=== PATIENT | male | born 1930 | race Caucasian/White ===

== ENCOUNTER 2017-02-18 16:36 | Inpatient (IN) | payer OTHER ==
[~2017-02-18] VITALS: Ht 177.8 cm; Wt 76.5 kg
[~2017-02-18 16:36] MED LIST: AZPOPS OPB; CRF1 PO; MAGNTAB4 PO; MULT-506 PO; PRLSR20 PO; STLS PO; [UNRECOGNIZED DRUG - OTHER] OPB
[2017-02-18] MEDS ORDERED: SODIUM CHLORIDE 0.9% 1000ML 1,000 ML IV SCH (16:50)
[2017-02-18 17:08] LABS: BASO % 0.5 %; BASO ABS # 0.03 K/uL (0-0.2); COMPLETE YES; EOS % 5.4 %; HEMATOCRIT 40.8 % (42-52); IG% 0.2 %; LYMPH % 35.3 %; MEAN CELL VOLUME 90.9 fL (80-100); MEAN CORPUSCULAR HGB CONC 34.1 g/dl (32-36); MEAN PLATELET VOLUME 9.5 fL (7.4-10.4); MONO % 5.1 %; NEUT % 53.5 %; PLATELET COUNT 188 K/uL (130-400); RED BLOOD COUNT 4.49 M/uL (4.7-6.1); WHITE BLOOD COUNT 6.51 K/uL (4.8-10.8)
[2017-02-18] MEDS ORDERED: SUCR1TAB PO (17:11)
[2017-02-18] MEDS ORDERED: DOCU100C PO (17:11)
[2017-02-18] MEDS ORDERED: MAGN250T22 PO (17:11)
[2017-02-18] MEDS ORDERED: SENN-61 PO (17:11)
[2017-02-18] MEDS ORDERED: CHOL400C7 PO (17:11)
[2017-02-18] MEDS ORDERED: DORZ1SOL6 OPB (17:11)
--- NOTE | 2017-02-18 17:13 | EMERGENCY ROOM VISIT NOTE ---
History Report prepared by Sanam: Quiana Alaniz Under the Supervision of: Dr. Sarthak Loredo D.O. First contact with patient: 16:45 Chief Complaint: STROKE SYMPTOMS Stated Complaint: STROKE Nursing Triage Summary: reports that pt had slurred speech and confusion lasting 15-20 minutes this afternoon 1530. [facility] at [facility] instructed pt to come to ED. Symptoms have resolved per . History of Present Illness The patient is a 86 year old male who presents to the Emergency Room with complaints of an episode of slurred speech which occurred around 1500 today. He was sitting down outside with his , resting when he began to experience difficulty speaking. His describes it as though his mouth was not working correctly. She states that he seemed confused. The patient states that he was aware that he was not making sense. The symptoms lasted for about 30 minutes. He has a similar episode 2 nights ago. He states that he is fine now. He has had some trouble keeping his balance recently. He denies any nausea, vomiting, chest pain, SOB, back pain, neck pain, melena, or hematochezia. He denies any recent falls. He has no history of irregular heart rhythms or heart valve problems. He is not on any blood thinners. Source of History: patient, spouse/significant other Onset: 1500 Position: other (global) Quality: other (slurred speech) Timing: other (episodic) Associated Symptoms: No SOB, No back pain, No chest pain, No hematochezia, No melena, No nausea, No neck pain, No vomiting Note: Pt reports confusion. Review of Systems See HPI for pertinent positives & negatives. A total of 10 systems reviewed and were otherwise negative. Past Medical & Surgical Medical Problems: (1) CKD (chronic kidney disease), stage III (2) GERD (gastroesophageal reflux disease) (3) Glaucoma (4) TIA (transient ischemic attack) Surgical Problems: (1) H/O colonoscopy (2) H/O knee surgery (3) History of cataract surgery (4) History of esophagogastroduodenoscopy (EGD) (5) History of gastric surgery Family History Noncontributory secondary to age Social History Smoking Status: Former Smoker Marital Status: Housing Status: lives with significant other Occupation Status: retired Current/Historical Medications Scheduled Cholecalciferol (Vitamin D 400 Iu), 400 INTER.UNIT PO DAILY Docusate Sodium (Stool Softener), 100 MG PO QPM Dorzolamide Hcl-Timolol Maleat (Cosopt Oph), 1 DROP OPB BID Magnesium Oxide (Magnesium), 250 MG PO DAILY Multivitamin (Multivitamin), 1 TAB PO DAILY Omeprazole (Prilosec), 20 MG PO QAM Senna (Senokot), 8.6 MG PO QPM Sucralfate (Sucralfate), 1 GM PO TID Allergies Coded Allergies: Adhesives (Unverified Allergy, Unknown, RASH, 11/09/16) Aspirin (Unverified Allergy, Unknown, BLEEDING ULCERS, 11/09/16) Codeine (Unverified Allergy, Unknown, Rash - All over body redness, ) Latex1 -Allergic Contact Dermititis (Unverified Allergy, Unknown, LOCAL RASH, 11/09/16) NSAIDs (Verified Allergy, Unknown, _, 11/09/16) Prednisone (Verified Allergy, Unknown, 11/09/16) Primidone (Verified Allergy, Unknown, SWEATING, DIZZINESS, 11/09/16) Physical Exam Vital Signs Date Time Temp Pulse Resp B/P Pulse Ox O2 Delivery O2 Flow Rate FiO2 02/18/17 18:12 64 16 153/90 99 Room Air 02/18/17 17:14 56 22 182/93 98 Room Air 02/18/17 17:13 98 Room Air 02/18/17 16:54 62 02/18/17 16:41 36.5 67 18 198/88 95 Room Air Physical Exam GENERAL: Patient is awake, alert, and in no acute distress. Patient is resting comfortably and showing no signs of anxiety EYES: The conjunctivae are clear. The pupils are round and reactive. EARS, NOSE, MOUTH AND THROAT: The nose is without any evidence of any deformity. Mucous membranes are moist tongue is midline NECK: The neck is nontender and supple. RESPIRATORY: Normal respiratory effort is noted there is no evidence of wheezing rhonchi or rales CARDIOVASCULAR: Regular rate and rhythm noted there no murmurs rubs or gallops normal S1 normal S2 GASTROINTESTINAL: The abdomen is soft. Bowel sounds are present in all quadrants. Abdomen is nontender MUSCULOSKELETAL/EXTREMITIES: There is no evidence of gross deformity full range of motion is noted in the hips and shoulders SKIN: Trace pedal edema bilaterally. No signs of cellulitis noted. NEUROLOGIC: Patient is awake alert and oriented x3. Clay Transporter strength is symmetric. No facial droop appreciated, no drift noted. Medical Decision & Procedures ER Provider Diagnostic Interpretation: X-ray results as stated below per interpretation by me and the radiologist. Radiology results as stated below per my review and radiologist interpretation: SINGLE VIEW CHEST CLINICAL HISTORY: Strokelike symptoms. FINDINGS: An AP, portable, upright chest radiograph is compared to study dated 11/09/2016. The examination is degraded by portable technique and patient rotation. The cardiomediastinal silhouette is unremarkable. There is atherosclerotic calcification of the thoracic aorta. Emphysematous change is suspected. There is chronic interstitial thickening. No airspace consolidation or large pleural effusion is identified. No pneumothorax is seen. The skeletal structures are osteopenic. Degenerative change is noted throughout the thoracic spine. IMPRESSION: No acute cardiopulmonary abnormality. Electronically signed by: Yannick Sykes M.D. 02/18/2017 6:00 PM Dictated Date/Time: 02/18/2017 5:[address] SCAN OF THE BRAIN WITHOUT IV CONTRAST CLINICAL HISTORY: Strokelike symptoms. COMPARISON STUDY: No priors. TECHNIQUE: Unenhanced axial CT scan of the brain is performed from the vertex to the skull base. CT DOSE: 614.27 mGy.cm FINDINGS: Brain parenchyma: There are age-related involutional changes noting mild subcortical and periventricular microangiopathic change. There is no hemorrhage, mass effect, or evidence of acute territorial ischemia by CT criteria. Mineralization is noted in the basal ganglia. [place]-white matter is preserved. No extra-axial fluid collection is seen. Ventricles, sulci, cisterns: Prominent secondary to involutional change. Intracranial vasculature: There is atherosclerotic calcification of the cavernous carotid and vertebral arteries. Calvarium: Unremarkable. Soft tissues: A small metallic foreign body is suggested in the frontal scalp on image #13. Sinuses and mastoids: The visualized paranasal sinuses are clear. The mastoid air cells are well pneumatized. Orbits: The bony orbits are grossly intact. There are bilateral ocular lens implants. IMPRESSION: There is no hemorrhage, mass effect, or evidence of acute territorial ischemia by CT criteria. Electronically signed by: Yannick Sykes M.D. 02/18/2017 5:15 PM Dictated Date/Time: 02/18/2017 5:13 PM Laboratory Results 02/18/17 17:00 Red Blood Count 4.49, Mean Corpuscular Volume 90.9, Mean Corpuscular Hemoglobin 31.0, Mean Corpuscular Hemoglobin Concent 34.1, Mean Platelet Volume 9.5, Neutrophils (%) (Auto) 53.5, Lymphocytes (%) (Auto) 35.3, Monocytes (%) (Auto) 5.1, Eosinophils (%) (Auto) 5.4, Basophils (%) (Auto) 0.5, Neutrophils # (Auto) 3.49, Lymphocytes # (Auto) 2.30, Monocytes # (Auto) 0.33, Eosinophils # (Auto) 0.35, Basophils # (Auto) 0.03 02/18/17 17:00 Test 02/18/17 17:00 02/18/17 17:25 White Blood Count 6.51 K/uL (4.8-10.8) Red Blood Count 4.49 M/uL (4.7-6.1) Hemoglobin 13.9 g/dL (14.0-18.0) Hematocrit 40.8 % (42-52) Mean Corpuscular Volume 90.9 fL (80-100) Mean Corpuscular Hemoglobin 31.0 pg (25-34) Mean Corpuscular Hemoglobin Concent 34.1 g/dl (32-36) Platelet Count 188 K/uL (130-400) Mean Platelet Volume 9.5 fL (7.4-10.4) Neutrophils (%) (Auto) 53.5 % Lymphocytes (%) (Auto) 35.3 % Monocytes (%) (Auto) 5.1 % Eosinophils (%) (Auto) 5.4 % Basophils (%) (Auto) 0.5 % Neutrophils # (Auto) 3.49 K/uL (1.4-6.5) Lymphocytes # (Auto) 2.30 K/uL (1.2-3.4) Monocytes # (Auto) 0.33 K/uL (0.11-0.59) Eosinophils # (Auto) 0.35 K/uL (0-0.5) Basophils # (Auto) 0.03 K/uL (0-0.2) RDW Standard Deviation 41.1 fL (36.4-46.3) RDW Coefficient of Variation 12.4 % (11.5-14.5) Immature Granulocyte % (Auto) 0.2 % Immature Granulocyte # (Auto) 0.01 K/uL (0.00-0.02) Prothrombin Time 10.6 SECONDS (9.0-12.0) Prothromb Time International Ratio 1.0 (0.9-1.1) Activated Partial Thromboplast Time 26.4 SECONDS (21.0-31.0) Partial Thromboplastin Ratio 1.0 Anion Gap 6.0 mmol/L (3-11) Est Creatinine Clear Calc Drug Dose 35.5 ml/min Estimated GFR () 48.2 Estimated GFR (Non- 41.6 BUN/Creatinine Ratio 9.9 (10-20) Calcium Level 8.6 mg/dl (8.5-10.1) Total Bilirubin 0.5 mg/dl (0.2-1) Direct Bilirubin 0.2 mg/dl (0-0.2) Aspartate Amino Transf (AST/SGOT) 19 U/L (15-37) Alanine Aminotransferase (ALT/SGPT) 25 U/L (12-78) Alkaline Phosphatase 71 U/L (45-117) Total Creatine Kinase 141 U/L (39-308) Creatine Kinase MB 2.1 ng/ml (0.5-3.6) Creatine Kinase MB Ratio 1.5 (0-3.0) Troponin I < 0.015 ng/ml (0-0.045) Total Protein 7.5 gm/dl (6.4-8.2) Albumin 4.0 gm/dl (3.4-5.0) Urine Color YELLOW Urine Appearance CLEAR (CLEAR) Urine pH 7.5 (4.5-7.5) Urine Specific [place] 1.005 (1.000-1.030) Urine Protein NEG (NEG) Urine Glucose (UA) NEG (NEG) Urine Ketones NEG (NEG) Urine Occult Blood NEG (NEG) Urine Nitrite NEG (NEG) Urine Bilirubin NEG (NEG) Urine Urobilinogen NEG (NEG) Urine Leukocyte Esterase NEG (NEG) Laboratory results per my review. Medications Administered Medications (Trade) Dose Ordered Sig/Thomas Route Start Time Stop Time Status Last Admin Dose Admin Sodium Chloride (Nss 1000ml) 1,000 ml @ 50 mls/hr Q20H IV 02/18/17 16:50 02/18/17 19:38 DC 02/18/17 17:26 50 MLS/HR ECG Indication: altered mental status Rate (beats per minute): 56 Rhythm: sinus bradycardia Findings: no ectopy, other (no ST segment abnormalities noted) Comparison ECG Date: Change: no significant change ED Course 164: The patient was evaluated in room B11B. A complete history and physical examination were performed. 165: NSS 1000 ml @ 50 mls/hr IV. 1801: I discussed the patient's case with RANDELL Gee. The patient will be evaluated for further management. 1804: I reevaluated the patient. He is resting comfortably. I discussed results and treatment plan with him. He verbalizes agreement and understanding. The patient will be evaluated for further management and care. Medical Decision Prior records/ancillary studies reviewed and summarized above. Nursing notes reviewed. Differential diagnosis: Etiologies such as metabolic, infection, hypo/hyperglycemia, electrolyte abnormalities, cardiac sources, intracerebral event, toxicologic, neurologic, as well as others were entertained. The patient is an 86-year-old male who presented to the emergency department for evaluation of possible stroke. The patient had an episode today where he had dysarthria and confusion. The episode was short lived and resolve spontaneously. His states that he had a similar episode a few days ago. The patient does not have a history of stroke or atrial fibrillation but does note that he has had elevated blood pressure today. I discussed the patient's laboratory and radiographic studies with him. I also discussed his case with the on-call Alex hospitalist. They have agreed to evaluate the patient in emergency apartment for further management and disposition. It is possible he may require further workup including echocardiogram carotid Dopplers and an MRI the brain to further evaluate the possible cause of his TIA symptoms. Consults Time Called: 1800 Consulting Physician: RANDELL Gee Returned Call: 1801 I discussed the patient's case with him. The patient will be evaluated for further management. Impression Primary Impression: TIA (transient ischemic attack) Additional Impression: Hypertension Scribe Attestation The scribe's documentation has been prepared under my direction and personally reviewed by me in its entirety. I confirm that the note above accurately reflects all work, treatment, procedures, and medical decision making performed by me. Departure Information Dispostion Being Evaluated By Hospitalist Referrals Paulino Vela M.D. (PCP) Patient Instructions My [facility] Problem Qualifiers Primary Impression: TIA (transient ischemic attack) Transient cerebral ischemia type: unspecified Qualified Codes: G45.9 - Transient cerebral ischemic attack, unspecified Additional Impression:
[2017-02-18 17:17] LABS: PROTHROMBIN TIME (PATIENT) 10.6 SECONDS (9.0-12.0)
--- NOTE | 2017-02-18 17:17 | DIAGNOSTIC IMAGING REPORT ---
CT SCAN OF THE BRAIN WITHOUT IV CONTRAST CLINICAL HISTORY: Strokelike symptoms. COMPARISON STUDY: No priors. TECHNIQUE: Unenhanced axial CT scan of the brain is performed from the vertex to the skull base. CT DOSE: 614.27 mGy.cm FINDINGS: Brain parenchyma: There are age-related involutional changes noting mild subcortical and periventricular microangiopathic change. There is no hemorrhage, mass effect, or evidence of acute territorial ischemia by CT criteria. Mineralization is noted in the basal ganglia. [place]-white matter is preserved. No extra-axial fluid collection is seen. Ventricles, sulci, cisterns: Prominent secondary to involutional change. Intracranial vasculature: There is atherosclerotic calcification of the cavernous carotid and vertebral arteries. Calvarium: Unremarkable. Soft tissues: A small metallic foreign body is suggested in the frontal scalp on image #13. Sinuses and mastoids: The visualized paranasal sinuses are clear. The mastoid air cells are well pneumatized. Orbits: The bony orbits are grossly intact. There are bilateral ocular lens implants. IMPRESSION: There is no hemorrhage, mass effect, or evidence of acute territorial ischemia by CT criteria. Electronically signed by: Yannick Sykes M.D. 02/18/2017 5:15 PM Dictated Date/Time: 02/18/2017 5:13 PM
[2017-02-18 17:26] LABS: ALT/SGPT 25 U/L (12-78); AST/SGOT 19 U/L (15-37); BLOOD UREA NITROGEN 15 mg/dl (7-18); BUN/CREATININE RATIO 9.9 (10-20); CALCIUM 8.6 mg/dl (8.5-10.1); CARBON DIOXIDE 29 mmol/L (21-32); CHLORIDE 106 mmol/L (98-107); GLUCOSE 102 mg/dl (70-99); POTASSIUM 4.4 mmol/L (3.5-5.1); SODIUM 141 mmol/L (136-145)
[2017-02-18 17:31] LABS: ALKALINE PHOSPHATASE 71 U/L (45-117); CKMB/CK RATIO 1.5 (0-3.0)
--- NOTE | 2017-02-18 18:01 | DIAGNOSTIC IMAGING REPORT ---
SINGLE VIEW CHEST CLINICAL HISTORY: Strokelike symptoms. FINDINGS: An AP, portable, upright chest radiograph is compared to study dated 11/09/2016. The examination is degraded by portable technique and patient rotation. The cardiomediastinal silhouette is unremarkable. There is atherosclerotic calcification of the thoracic aorta. Emphysematous change is suspected. There is chronic interstitial thickening. No airspace consolidation or large pleural effusion is identified. No pneumothorax is seen. The skeletal structures are osteopenic. Degenerative change is noted throughout the thoracic spine. IMPRESSION: No acute cardiopulmonary abnormality. Electronically signed by: Yannick Sykes M.D. 02/18/2017 6:00 PM Dictated Date/Time: 02/18/2017 5:58 PM
[2017-02-18 18:04] LABS: URINE APPEARANCE CLEAR (CLEAR); URINE BILIRUBIN NEG (NEG); URINE COLOR YELLOW; URINE NITRITE NEG (NEG); URINE PH 7.5 (4.5-7.5); URINE SPECIFIC GRAVITY 1.005 (1.000-1.030); UROBILINOGEN NEG (NEG)
[2017-02-18 18:14] LABS: MANUAL MICROSCOPIC REQUIRED? NO; REVIEW REQ? NO
[2017-02-18] MEDS ORDERED: PHARMACIST DISCHARGE MED REC CONSULT PRN (18:45)
[2017-02-18] MEDS ORDERED: ACETAMINOPHEN 325 MG TAB PO PRN (18:45)
[2017-02-18] MEDS ORDERED: ONDANSETRON INJ 2 MG/ML 2 ML VIAL IV PRN (18:45)
--- NOTE | 2017-02-18 19:52 | History and Physical ---
History & Physical Date & Time of Service: Feb 18, 2017 at 19:40 Chief Complaint: TIA Primary Care Physician: Paulino Vela M.D. History of Present Illness Source: patient, family, clinic records, hospital records Patient seen and examined. 86 year old male with PMHx of CKD stage 3, presents to the ED complaining of slurred speech prior to arrival. Patient reports that he has had 2 episodes of slurred speech in the last two days. He reports the episodes last about 15 minutes and then resolve. reports that during the episode the patient seems confused. She did not notice that he had any facial droop. He denies unilateral weakness. They called [facility] who told the patient to go to the ED and the patient arrived several hours later, and reports he is back at baseline. He denies falls, head trauma, lightheadedness, syncope, URI symptoms, chest pain, SOB, nausea, vomiting, diarrhea, dysuria, calf pain and edema. He denies ever having these episodes previously. He denies history of heart problems, HTN. In the ED patient was initially hypertensive with SBP 198. This improved ot [address] head was negative, CBC, PRP, UA were essentially unremarkable. Patient has a history of severe GI bleed while taken Aspirin so aspirin was not given. He will be admitted for further workup and treatment. Past Medical/Surgical History Medical Problems: (1) CKD (chronic kidney disease), stage III Status: Chronic (2) GERD (gastroesophageal reflux disease) Status: Chronic (3) Glaucoma Status: Chronic Surgical Problems: (1) H/O colonoscopy Status: Chronic (2) H/O knee surgery Status: Chronic (3) History of cataract surgery Status: Chronic (4) History of esophagogastroduodenoscopy (EGD) Status: Chronic (5) History of gastric surgery Status: Chronic Family History Diabetes mellitus FH: cancer FH: heart disease Kidney disease Social History Smoking Status: Former Smoker Alcohol Use: none Marital Status: Housing status: lives with family Occupational Status: retired Immunizations History of Influenza Vaccine: N/A History of Tetanus Vaccine?: No History of Pneumococcal: Unknown History of Hepatitis B Vaccine: No Multi-Drug Resistant Organisms History of MDRO: No Allergies Coded Allergies: Adhesives (Unverified Allergy, Unknown, RASH, 11/09/16) Aspirin (Unverified Allergy, Unknown, BLEEDING ULCERS, 11/09/16) Codeine (Unverified Allergy, Unknown, Rash - All over body redness, ) Latex1 -Allergic Contact Dermititis (Unverified Allergy, Unknown, LOCAL RASH, 11/09/16) NSAIDs (Verified Allergy, Unknown, _, 11/09/16) Prednisone (Verified Allergy, Unknown, 11/09/16) Primidone (Verified Allergy, Unknown, SWEATING, DIZZINESS, 11/09/16) Home Medications Scheduled Cholecalciferol (Vitamin D 400 Iu), 400 INTER.UNIT PO DAILY Docusate Sodium (Stool Softener), 100 MG PO QPM Dorzolamide Hcl-Timolol Maleat (Cosopt Oph), 1 DROP OPB BID Magnesium Oxide (Magnesium), 250 MG PO DAILY Multivitamin (Multivitamin), 1 TAB PO DAILY Omeprazole (Prilosec), 20 MG PO QAM Senna (Senokot), 8.6 MG PO QPM Sucralfate (Sucralfate), 1 GM PO TID Review of Systems See above for pertinent positives & negatives. A total of 10 systems reviewed and were otherwise negative. Physical Exam Vital Signs Date Time Temp Pulse Resp B/P Pulse Ox O2 Delivery O2 Flow Rate FiO2 02/18/17 19:16 74 22 184/94 97 Room Air 02/18/17 18:12 64 16 153/90 99 Room Air 02/18/17 17:14 56 22 182/93 98 Room Air 02/18/17 17:13 98 Room Air 02/18/17 16:54 62 02/18/17 16:41 36.5 67 18 198/88 95 Room Air General Appearance: + pertinent finding (WD/WN 86 year old male lying in bed in NAD with at bedside) Head: normocephalic, atraumatic Eyes: PERRL, EOMI, sclerae normal ENT: hearing grossly normal, pharynx normal Neck: supple, no JVD Respiratory/Chest: chest non-tender, lungs clear, normal breath sounds, no respiratory distress, no accessory muscle use Cardiovascular: regular rate, rhythm, no edema, no gallop, no JVD, no murmur, normal peripheral pulses Abdomen/GI: normal bowel sounds, non tender, soft Back: normal inspection, no muscle spasm Extremities/Musculoskelatal: no calf tenderness, normal capillary refill, no pedal edema Neurologic/Psych: tank tender II-XII nml as tested, alert, oriented x 3, + pertinent finding (no focal deficits ) Skin: normal color, warm/dry, no rash Lymphatic: no adenopathy Diagnostics Laboratory Results Results Past 24 Hours Test 02/18/17 17:00 02/18/17 17:25 Range/Units White Blood Count 6.51 4.8-10.8 K/uL Red Blood Count 4.49 4.7-6.1 M/uL Hemoglobin 13.9 14.0-18.0 g/dL Hematocrit 40.8 42-52 % Mean Corpuscular Volume 90.9 80-100 fL Mean Corpuscular Hemoglobin 31.0 25-34 pg Mean Corpuscular Hemoglobin Concent 34.1 32-36 g/dl Platelet Count 188 130-400 K/uL Mean Platelet Volume 9.5 7.4-10.4 fL Neutrophils (%) (Auto) 53.5 % Lymphocytes (%) (Auto) 35.3 % Monocytes (%) (Auto) 5.1 % Eosinophils (%) (Auto) 5.4 % Basophils (%) (Auto) 0.5 % Neutrophils # (Auto) 3.49 1.4-6.5 K/uL Lymphocytes # (Auto) 2.30 1.2-3.4 K/uL Monocytes # (Auto) 0.33 0.11-0.59 K/uL Eosinophils # (Auto) 0.35 0-0.5 K/uL Basophils # (Auto) 0.03 0-0.2 K/uL RDW Standard Deviation 41.1 36.4-46.3 fL RDW Coefficient of Variation 12.4 11.5-14.5 % Immature Granulocyte % (Auto) 0.2 % Immature Granulocyte # (Auto) 0.01 0.00-0.02 K/uL Prothrombin Time 10.6 9.0-12.0 SECONDS Prothromb Time International Ratio 1.0 0.9-1.1 Activated Partial Thromboplast Time 26.4 21.0-31.0 SECONDS Partial Thromboplastin Ratio 1.0 Sodium Level 141 136-145 mmol/L Potassium Level 4.4 3.5-5.1 mmol/L Chloride Level 106 98-107 mmol/L Carbon Dioxide Level 29 21-32 mmol/L Anion Gap 6.0 3-11 mmol/L Blood Urea Nitrogen 15 7-18 mg/dl Creatinine 1.50 0.60-1.40 mg/dl Est Creatinine Clear Calc Drug Dose 35.5 ml/min Estimated GFR () 48.2 Estimated GFR (Non- 41.6 BUN/Creatinine Ratio 9.9 10-20 Random Glucose 102 70-99 mg/dl Calcium Level 8.6 8.5-10.1 mg/dl Total Bilirubin 0.5 0.2-1 mg/dl Direct Bilirubin 0.2 0-0.2 mg/dl Aspartate Amino Transf (AST/SGOT) 19 15-37 U/L Alanine Aminotransferase (ALT/SGPT) 25 12-78 U/L Alkaline Phosphatase 71 45-117 U/L Total Creatine Kinase 141 39-308 U/L Creatine Kinase MB 2.1 0.5-3.6 ng/ml Creatine Kinase MB Ratio 1.5 0-3.0 Troponin I < 0.015 0-0.045 ng/ml Total Protein 7.5 6.4-8.2 gm/dl Albumin 4.0 3.4-5.0 gm/dl Urine Color YELLOW Urine Appearance CLEAR CLEAR Urine pH 7.5 4.5-7.5 Urine Specific [place] 1.005 1.000-1.030 Urine Protein NEG NEG Urine Glucose (UA) NEG NEG Urine Ketones NEG NEG Urine Occult Blood NEG NEG Urine Nitrite NEG NEG Urine Bilirubin NEG NEG Urine Urobilinogen NEG NEG Urine Leukocyte Esterase NEG NEG Diagnostic Radiology CT HEAD Per radiologist read: IMPRESSION: There is no hemorrhage, mass effect, or evidence of acute territorial ischemia by CT criteria. CXR Per radiologist read: IMPRESSION: No acute cardiopulmonary abnormality. EKG Sinus Bradycardia 56 BPM Impression Assessment and Plan 86 year old male presents to the ED with multiple episodes of slurred speech lasting for approximately 15 minutes at a time TIA R/O CVA -observation in tele -CT head negative in ED -MRA/MRI to r/o CVA -Fasting lipid profile in AM -Echo pending to r/o embolic source -Carotid Doppler US pending -Monitor in tele to r/o arrhythmia -Statin started for secondary prevention -Aspirin not given as patient has history of severe GI bleed while on aspirin. Case discussed with admitting physician. Will defer antiplatelet therapy to neurology -Neurology consult pending for further input -Neuro checks q4h -PT/OT speech evals -CBC, PRP, Mg daily -VSS stable monitor HYPERTENSION - UNCONTROLLED -SBP was 198 on arrival, improved to 153 without intervention -allow permissive HTN in setting of possible stroke -may need to start antihypertensives -monitor in tele CKD STAGE 3 -crea stable -avoid nephrotoxic agents as able -follow PRP GERD/History of PUD -continue PPI, carafate GLAUCOMA -continue eye drops DVT PROPHYLAXIS: SCDs RE: h/o GI bleed CODE STATUS: FULL CODE per my discussion with the patient DISPO:In my clinical judgment this beneficiary meets acute admission criteria, established by [facility], that includes being hospitalized through two midnights. Patient seen in collaboration with Dr. Ding Attending Addendum Pt was seen and examined. Agreed with Giacomo OTERO's physical exam, assessment and plan. 86 year old male with PMHx of CKD stage 3, HTN presents to the ED with c/ o slurred speech. Pt said that he has had 2 episodes of slurred speech that occurred 2 days ago. He said that he did not have any other symptoms. Pt said that his speech is back to normal. Denies any chest pain, palpitation, dizziness , weakness and SOB. General- No acute distress Head- atraumatic Eyes- PERRL, EOMI ENT- oropharynx clear Neck- supple, no JVD Lungs- clear to auscultation, no wheezing Heart- regular rhythm; no murmur, no gallop Abdomen- normal bowel sounds, soft Extremities-no calf tenderness Neuro- alert, oriented, PERRL, EOMI; no dysarthria; motor 5/5 bilaterally Skin- warm & dry A/P Slurred speech Possible related to TIA Need to R/o CVA CT head negative for any intracranial abnormality Symptom resolved will do neuro check check MRI of the head and MRA of head and neck, and echo No ASA given since pt had severe GI bleed while on asa few years ago will do statins consult neurology continue monitor pt closely in telemetry Lab, EKG, imaging reviewed Please refer to Laura OTERO documentation for other problems Tylor Ding MD VTE Prophylaxis VTE Risk Assessment Done? Y/N: Yes Risk Level: Moderate
[2017-02-18 19:58] VITALS: BP 169/88; PULSE 70; TEMP 36.6; O2SAT 98; Ht 177.8 cm; Wt 76.5 kg
[2017-02-18 20:00] VITALS: O2SAT 98
[2017-02-18] MEDS: DORZOLAMIDE/TIMOLOL 22.3/6.8MG/ML 10 ML BTL OPB SCH (21:00)
[2017-02-18] MEDS: SUCRALFATE 1 GM TAB PO SCH (21:01)
[2017-02-18] MEDS: DOCUSATE SODIUM 100 MG CAP PO SCH (21:01)
[2017-02-18] MEDS: SENNA 8.6 MG TAB PO SCH (21:02)
[2017-02-18 23:35] VITALS: BP 153/80; PULSE 64; TEMP 36.8; O2SAT 96
[2017-02-19] VITALS (9 sets, daily range): BP systolic 122–175; BP diastolic 72–93; PULSE 53–73; TEMP 36.4–37.1; O2SAT 94–99
[2017-02-19 06:55] LABS: BASO % 0.5 %; BASO ABS # 0.03 K/uL (0-0.2); COMPLETE YES; EOS % 5.7 %; IG% 0.2 %; LYMPH % 28.5 %; LYMPH ABS # 1.84 K/uL (1.2-3.4); MEAN CELL VOLUME 91.1 fL (80-100); MEAN CORPUSCULAR HEMOGLOBIN 31.1 pg (25-34); MEAN CORPUSCULAR HGB CONC 34.1 g/dl (32-36); MEAN PLATELET VOLUME 9.7 fL (7.4-10.4); MONO % 7.1 %; PLATELET COUNT 178 K/uL (130-400); WHITE BLOOD COUNT 6.45 K/uL (4.8-10.8)
[2017-02-19 07:29] LABS: BUN/CREATININE RATIO 10.1 (10-20); CALCIUM 8.9 mg/dl (8.5-10.1); CREATININE 1.5 mg/dl (0.60-1.40); POTASSIUM 4.2 mmol/L (3.5-5.1)
[2017-02-19 07:33] LABS: CHOLESTEROL/HDL RATIO 3.5
[2017-02-19] MEDS: DORZOLAMIDE/TIMOLOL 22.3/6.8MG/ML 10 ML BTL OPB SCH ×2 (07:55→17:44)
[2017-02-19] MEDS: MAGNESIUM OXIDE 400 MG TAB PO SCH (07:56)
[2017-02-19] MEDS: ATORVASTATIN 40 MG TAB PO SCH (07:56)
[2017-02-19] MEDS: PANTOprazole SOD 40 MG TAB PO SCH (07:56)
[2017-02-19] MEDS: MULTIVITAMIN TAB PO SCH (07:56)
[2017-02-19] MEDS: CHOLECALCIFEROL 400 INTER.UNIT TAB PO SCH (07:56)
[2017-02-19] MEDS: SUCRALFATE 1 GM TAB PO SCH ×3 (07:57→20:19)
--- NOTE | 2017-02-19 09:20 | DIAGNOSTIC IMAGING REPORT ---
CAROTID ARTERY ULTRASOUND CLINICAL HISTORY: Stroke COMPARISON STUDY: None. TECHNIQUE: Real-time, grayscale, and color Doppler sonography of the carotid and vertebral arteries was performed. Images were viewed in the transverse and longitudinal planes. FINDINGS: There is mild to moderate atherosclerotic plaque. Velocity measurements are listed below. COMMON CAROTID PEAK SYSTOLIC VELOCITY (CM/S): RIGHT 76 LEFT 109 ICA PEAK SYSTOLIC VELOCITY (CM/S): RIGHT 51 LEFT 75 The systolic ratios between the internal to common carotid arteries are normal. Antegrade flow is seen in the vertebral arteries. The external carotid arteries are patent. Blood pressure in the right arm measured 140/81. Blood pressure in the left arm measured 158/80. IMPRESSION: No evidence of a hemodynamically significant stenosis. Electronically signed by: Richie Fernández M.D. 02/19/2017 9:18 AM Dictated Date/Time: 02/19/2017 9:17 AM
--- NOTE | 2017-02-19 12:22 | NEUROLOGY CONSULTATION ---
DATE OF CONSULTATION: 02/19/2017 DATE OF CONSULTATION: 02/19/2017. REASON FOR CONSULTATION: Transient ischemic attack. HISTORY OF PRESENT ILLNESS: The patient is an 86-year-old left-handed male with chronic kidney disease presents to the ER with 2 episodes of slurred speech versus aphasia prior to arrival. The patient had had an episode the day before lasting about 15 minutes. reported that he seemed confused and the patient reports perhaps a dysarthria. The patient said that he was aware that he was not making sense. There were no other accompanying neurologic symptoms. There was no change in vision, facial droop, unilateral weakness, numbness, headaches. There was no chest pain, palpitations or shortness of breath. He apparently has had some trouble with his balance recently, although he did not confirm that to me. He denies any numbness, tingling in his feet. He does not take any antiplatelet agents as he has a history of a remote GI bleed. He had dental work several weeks ago, takes prophylactic antibiotics and did so. Has not had any fevers, chills, sweats, head or neck injury. He has no prior history of transient ischemic attack or stroke. The patient is a fair historian and unable to give all the details of his medical history. He does know that he has glaucoma, did not know that he had reflux or chronic kidney disease. Surgically, he has had gastric surgery, which the patient says was remote and I am assuming may have been some type of vagotomy. He has had an esophagogastroduodenoscopy, cataract surgery which could not recall, right knee replacement, colonoscopy. FAMILY HISTORY: No family history of stroke. He is a former smoker, does not drink alcohol. 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 MEDICATIONS: On admission were vitamin D, stool softener, Cosopt, magnesium, multiple vitamin, Prilosec, Senokot and sucralfate. ALLERGIES: LISTED ADHESIVES, ASPIRIN "BLEEDING ULCER", CODEINE, LATEX, NONSTEROIDALS, PREDNISONE, PRIMIDONE. REVIEW OF SYSTEMS: As above. CT of the head is unremarkable for age. There is a small metallic foreign body in the frontal scalp. Carotid ultrasound, no evidence of a hemodynamically significant stenosis. Electrocardiogram on admission, sinus bradycardia, cannot rule inferior infarct. LABORATORY DATA: White count 6.5, H\\T\\H 13.9/40, platelet count 188. PT 10.6, PTT 26.4. Chemistry profile notable for a creatinine of 1.5, a creatinine clearance of 35.5, random glucose of 102. His LDL is 102. Urinalysis was negative. PHYSICAL EXAMINATION: VITAL SIGNS: 37, 53, 16, 166/77. GENERAL: The patient is awake and alert, oriented x3, has 3/3 memory at 3 minutes, but does not recall who the vice president financial is and had an incomplete recollection of his own medical history. There is no difficulty with naming, repetitions, or 3-step commands. There was no right/left confusion. No carotid bruits. HEART: Regular rate and rhythm. EXTREMITIES: Radial pulses and posterior tibial pulses were intact. There was no calf swelling or tenderness. ABDOMEN: Soft and nontender. NEUROLOGIC: Pupils appear to be postsurgical. The visualized optic nerves unremarkable. Normal goodman, motility, facial sensation and facial symmetry. Speech and language were normal. Tongue was midline. Trapezius was full. Motor there is normal bulk and tone. No resting tremors noted. There is full strength, no drift. Normal rapid alternating movements. [id number] minimally tremulous. Heel to faulkner mildly dystaxic but probably on a sensory basis. Reflexes symmetric. Knee jerks depressed. Ankle jerks absent. Toes downgoing. Vibration only appreciated at the knees and there is above the ankle level to temperature on the left. His gait was fairly unremarkable for his age. IMPRESSION: 1. Transient ischemic attack, unclear localization. Query left or right hemisphere in this patient given the report of language dysfunction in this patient who is left handed. I do not think the patient can have an MRI of the brain due to the retained metal fragment in his forehead. I would recommend an echocardiography. I would recommend GI consultation to determine the safety of whether or not antiplatelet therapy can be used. In this patient it is acceptable to GI, lean in the direction of Plavix which potentially might be less irritating to the gastrointestinal tract. 2. Recommend telemetric monitoring. 3. 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 We will do some labs for treatable causes. Given the prominent posterior column findings it could be related to B12 deficiency. Will follow with you. ANANDA
--- NOTE | 2017-02-19 12:23 | Progress Note ---
Medicine Progress Note Date & Time of Visit: Feb 19, 2017 at 12:13. 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 Specifically he had some slurred speech and word finding difficulty that lasted appro 15 minutes at a time on two separate occasions. He denies any other deficits including gait issues, visual changes, difficulty swallowing and no headaches, numbness or other concerning symptom. No symptoms occurred overnight and no arrythmias noted on telemetry. Currently feeling well. Objective Last 8 Hrs Date Time Temp Pulse Resp B/P Pulse Ox O2 Delivery O2 Flow Rate FiO2 02/19/17 08:00 Room Air 02/19/17 07:15 37.0 53 16 166/77 99 Room Air 02/19/17 04:15 36.4 53 16 150/93 97 Room Air Physical Exam: GEN: WNWD, in no acute distress, alert and appropriate HEENT: NC/AT, PERRL, normal sclerae, EOMI CARDIO: reg rate, S1/2 heard without m/g/r, no carotid bruits heard LUNGS: CTA bilaterally, no crackles, rales or wheezes, good diaphragmatic excursion ABD: soft, non-tender, non-distended, no rebound or guarding EXTREMITY: no LE swelling or edema, extremities are warm and well-perfused NEURO: CN 2-12 intact, sensation intact throughout, coordination intact (CLAUDIA/ finger to nose/heel to faulkner), Romberg negative, attempted BR, knee and S1 reflexes and could not elicit them (pt tensing up) MUSC: 5/5 strength throughout, no focal deficits SKIN: warm and dry Laboratory Results: 02/19/17 06:31 Red Blood Count 4.50, Mean Corpuscular Volume 91.1, Mean Corpuscular Hemoglobin 31.1, Mean Corpuscular Hemoglobin Concent 34.1, Mean Platelet Volume 9.7, Neutrophils (%) (Auto) 58.0, Lymphocytes (%) (Auto) 28.5, Monocytes (%) (Auto) 7.1, Eosinophils (%) (Auto) 5.7, Basophils (%) (Auto) 0.5, Neutrophils # (Auto) 3.74, Lymphocytes # (Auto) 1.84, Monocytes # (Auto) 0.46, Eosinophils # (Auto) 0.37, Basophils # (Auto) 0.03 02/19/17 06:31 Test 02/18/17 17:00 02/18/17 17:25 02/19/17 06:31 02/19/17 11:45 Prothrombin Time 10.6 SECONDS (9.0-12.0) Prothromb Time International Ratio 1.0 (0.9-1.1) Activated Partial Thromboplast Time 26.4 SECONDS (21.0-31.0) Partial Thromboplastin Ratio 1.0 Total Bilirubin 0.5 mg/dl (0.2-1) Direct Bilirubin 0.2 mg/dl (0-0.2) Aspartate Amino Transf (AST/SGOT) 19 U/L (15-37) Alanine Aminotransferase (ALT/SGPT) 25 U/L (12-78) Alkaline Phosphatase 71 U/L (45-117) Total Creatine Kinase 141 U/L (39-308) Creatine Kinase MB 2.1 ng/ml (0.5-3.6) Creatine Kinase MB Ratio 1.5 (0-3.0) Troponin I < 0.015 ng/ml (0-0.045) Total Protein 7.5 gm/dl (6.4-8.2) Albumin 4.0 gm/dl (3.4-5.0) Urine Color YELLOW Urine Appearance CLEAR (CLEAR) Urine pH 7.5 (4.5-7.5) Urine Specific Gays 1.005 (1.000-1.030) Urine Protein NEG (NEG) Urine Glucose (UA) NEG (NEG) Urine Ketones NEG (NEG) Urine Occult Blood NEG (NEG) Urine Nitrite NEG (NEG) Urine Bilirubin NEG (NEG) Urine Urobilinogen NEG (NEG) Urine Leukocyte Esterase NEG (NEG) White Blood Count 6.45 K/uL (4.8-10.8) Red Blood Count 4.50 M/uL (4.7-6.1) Hemoglobin 14.0 g/dL (14.0-18.0) Hematocrit 41.0 % (42-52) Mean Corpuscular Volume 91.1 fL (80-100) Mean Corpuscular Hemoglobin 31.1 pg (25-34) Mean Corpuscular Hemoglobin Concent 34.1 g/dl (32-36) Platelet Count 178 K/uL (130-400) Mean Platelet Volume 9.7 fL (7.4-10.4) Neutrophils (%) (Auto) 58.0 % Lymphocytes (%) (Auto) 28.5 % Monocytes (%) (Auto) 7.1 % Eosinophils (%) (Auto) 5.7 % Basophils (%) (Auto) 0.5 % Neutrophils # (Auto) 3.74 K/uL (1.4-6.5) Lymphocytes # (Auto) 1.84 K/uL (1.2-3.4) Monocytes # (Auto) 0.46 K/uL (0.11-0.59) Eosinophils # (Auto) 0.37 K/uL (0-0.5) Basophils # (Auto) 0.03 K/uL (0-0.2) RDW Standard Deviation 41.4 fL (36.4-46.3) RDW Coefficient of Variation 12.4 % (11.5-14.5) Immature Granulocyte % (Auto) 0.2 % Immature Granulocyte # (Auto) 0.01 K/uL (0.00-0.02) Anion Gap 7.0 mmol/L (3-11) Est Creatinine Clear Calc Drug Dose 36.5 ml/min Estimated GFR () 48.2 Estimated GFR (Non- 41.6 BUN/Creatinine Ratio 10.1 (10-20) Calcium Level 8.9 mg/dl (8.5-10.1) Magnesium Level 2.0 mg/dl (1.8-2.4) Triglycerides Level 81 mg/dl (0-150) Cholesterol Level 165 mg/dl (0-200) HDL Cholesterol 47 mg/dl LDL Cholesterol, Calculated 102 mg/dl VLDL Cholesterol, Calculated 16 mg/dl Cholesterol/HDL Ratio 3.5 Last 24 Hours Test 02/18/17 17:00 02/18/17 17:25 02/19/17 06:31 02/19/17 11:45 White Blood Count 6.51 K/uL 6.45 K/uL Red Blood Count 4.49 M/uL 4.50 M/uL Hemoglobin 13.9 g/dL 14.0 g/dL Hematocrit 40.8 % 41.0 % Mean Corpuscular Volume 90.9 fL 91.1 fL Mean Corpuscular Hemoglobin 31.0 pg 31.1 pg Mean Corpuscular Hemoglobin Concent 34.1 g/dl 34.1 g/dl Platelet Count 188 K/uL 178 K/uL Mean Platelet Volume 9.5 fL 9.7 fL Neutrophils (%) (Auto) 53.5 % 58.0 % Lymphocytes (%) (Auto) 35.3 % 28.5 % Monocytes (%) (Auto) 5.1 % 7.1 % Eosinophils (%) (Auto) 5.4 % 5.7 % Basophils (%) (Auto) 0.5 % 0.5 % Neutrophils # (Auto) 3.49 K/uL 3.74 K/uL Lymphocytes # (Auto) 2.30 K/uL 1.84 K/uL Monocytes # (Auto) 0.33 K/uL 0.46 K/uL Eosinophils # (Auto) 0.35 K/uL 0.37 K/uL Basophils # (Auto) 0.03 K/uL 0.03 K/uL RDW Standard Deviation 41.1 fL 41.4 fL RDW Coefficient of Variation 12.4 % 12.4 % Immature Granulocyte % (Auto) 0.2 % 0.2 % Immature Granulocyte # (Auto) 0.01 K/uL 0.01 K/uL Prothrombin Time 10.6 SECONDS Prothromb Time International Ratio 1.0 Activated Partial Thromboplast Time 26.4 SECONDS Partial Thromboplastin Ratio 1.0 Sodium Level 141 mmol/L 143 mmol/L Potassium Level 4.4 mmol/L 4.2 mmol/L Chloride Level 106 mmol/L 105 mmol/L Carbon Dioxide Level 29 mmol/L 31 mmol/L Anion Gap 6.0 mmol/L 7.0 mmol/L Blood Urea Nitrogen 15 mg/dl 15 mg/dl Creatinine 1.50 mg/dl 1.50 mg/dl Est Creatinine Clear Calc Drug Dose 35.5 ml/min 36.5 ml/min Estimated GFR () 48.2 48.2 Estimated GFR (Non- 41.6 41.6 BUN/Creatinine Ratio 9.9 10.1 Random Glucose 102 mg/dl 94 mg/dl Calcium Level 8.6 mg/dl 8.9 mg/dl Total Bilirubin 0.5 mg/dl Direct Bilirubin 0.2 mg/dl Aspartate Amino Transf (AST/SGOT) 19 U/L Alanine Aminotransferase (ALT/SGPT) 25 U/L Alkaline Phosphatase 71 U/L Total Creatine Kinase 141 U/L Creatine Kinase MB 2.1 ng/ml Creatine Kinase MB Ratio 1.5 Troponin I < 0.015 ng/ml Total Protein 7.5 gm/dl Albumin 4.0 gm/dl Urine Color YELLOW Urine Appearance CLEAR Urine pH 7.5 Urine Specific Gays 1.005 Urine Protein NEG Urine Glucose (UA) NEG Urine Ketones NEG Urine Occult Blood NEG Urine Nitrite NEG Urine Bilirubin NEG Urine Urobilinogen NEG Urine Leukocyte Esterase NEG Magnesium Level 2.0 mg/dl Triglycerides Level 81 mg/dl Cholesterol Level 165 mg/dl HDL Cholesterol 47 mg/dl LDL Cholesterol, Calculated 102 mg/dl VLDL Cholesterol, Calculated 16 mg/dl Cholesterol/HDL Ratio 3.5 Diagnostic Imaging: CAROTID ARTERY ULTRASOUND (02/19): IMPRESSION: No evidence of a hemodynamically significant stenosis. 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 TIA-no events on tele overnight and no reoccurrence of TIA symptoms. CT head negative; MRI cancelled 2/2 metallic FB in scalp. Lipid panel looks fine. TTE pending. Carotids are normal. Appreciate Neuro recs regarding antiplatelet therapy in this gentleman with a significant h/o gastric ulcers after prednisone use. PT/OT evals pending. 2. HTN-in 190s systolic on arrival but went to 150s without intervention. Permissive HTN in setting of TIA/poss stroke. Not on any antihypertensives, which will likely need to be added once out of the acute period. Cont to monitor. 3. CKD Stage III-at baseline creatinine. Avoid nephrotoxic agents as able and renally dose medications as appropriate 4. h/o PUD-avoid prednisone, cont PPI and carafate 5. Glaucoma-cont home eye drops DVT PROPHYLAXIS: SCDs RE: h/o GI bleed Full Code Dispo: pending Neuro and PT/OT inputs. Erin Robb DO [facility] Hospitalist Consultants: Neuro Current Inpatient Medications: Current Inpatient Medications Medications (Trade) Dose Ordered Sig/Thomas Route Start Time Stop Time Status Last Admin Dose Admin Acetaminophen (Tylenol Tab) 650 mg Q4H PRN PO 02/18/17 18:45 03/20/17 18:44 Ondansetron HCl (Zofran Inj) 4 mg Q6H PRN IV 02/18/17 18:45 03/20/17 18:44 Atorvastatin Calcium (Lipitor Tab) 40 mg QAM PO 02/19/17 09:00 03/21/17 08:59 02/19/17 07:56 40 MG Miscellaneous Information (Pharmacist Discharge Med Rec Consult) 1 ea UD PRN N/A 02/18/17 18:45 03/20/17 18:44 Cholecalciferol (Vitamin D Tab) 400 inter.unit DAILY PO 02/19/17 09:00 03/21/17 08:59 02/19/17 07:56 400 INTER.UNIT Docusate Sodium (coLACE CAP) 100 mg QPM PO 02/18/17 21:00 03/20/17 20:59 02/18/17 21:01 100 MG Dorzolamide/ Timolol (Cosopt Op Soln) 1 drops BID OPB 02/18/17 21:00 03/20/17 20:59 02/19/17 07:55 1 DROPS Multivitamins (Multivitamin Tab) 1 tab DAILY PO 02/19/17 09:00 03/21/17 08:59 02/19/17 07:56 1 TAB Senna (Senokot Tab) 8.6 mg QPM PO 02/18/17 21:00 03/20/17 20:59 02/18/17 21:02 8.6 MG Sucralfate (Carafate Tab) 1 gm TID PO 02/18/17 21:00 03/20/17 20:59 02/19/17 07:57 1 GM Magnesium Oxide (Mag-Ox Tab) 200 mg DAILY PO 02/19/17 09:00 03/21/17 08:59 02/19/17 07:56 200 MG Pantoprazole Sodium (Protonix Tab) 40 mg QAM PO 02/19/17 09:00 03/21/17 08:59 02/19/17 07:56 40 MG
--- NOTE | 2017-02-19 12:32 | CARDIOLOGY CONSULTATION ---
DATE OF CONSULTATION: 02/19/2017 HISTORY OF PRESENT ILLNESS: Rashi Quintero is an 86-year-old male, seen in cardiology consultation per the request of Dr. Robb for the evaluation of abnormal EKG with recent transient neurologic symptoms. The patient's primary care provider is Dr. Paulino Vela at [facility]. The patient has not followed the cardiology on a chronic basis in the past. He apparently was in his normal state of health until several days ago when he had a brief episode of transient slurred speech and his words do not make any sense. This improved on its own and then yesterday, he had an episode that lasted 15 minutes. The patient's spouse states that he was saying things that did not make sense and in addition, his speech was slurred. The patient was subsequently confused. He could recognize that he was confused and this frustrated to him. He subsequently presented to the Emergency Department and his symptoms had resolved. There is no known underlying heart disease or arrhythmia in the past. He is not on antihypertensive medications. Review of his outpatient record reveals well controlled blood pressures with systolic blood pressure ranging from 100-110 mmHg on several recent past outpatient visits. During my interview with the patient in the PCU, he is feeling well and he was accompanied by his family. His blood pressure had been elevated on arrival to the Emergency Room with an initial systolic blood pressure of 198 mmHg and has trended down. PAST MEDICAL HISTORY: 1. History of profound gastrointestinal bleeding in 1994 that was attributed to prednisone use, which required eventual intraabdominal surgery at [facility] with a prolonged hospital course and prolonged ventilator course. He has therefore not been on steroidal anti-inflammatories, nonsteroidal anti-inflammatories, or aspirin in the interim time. 2. Gastroesophageal reflux disease. 3. Glaucoma. PAST SURGICAL HISTORY: 1. History of colonoscopy. 2. History of knee surgery. 3. History of cataract surgery. 4. History of gastric surgery as outlined above. FAMILY HISTORY: Notable for cancer and heart disease, details unknown. SOCIAL HISTORY: The patient is a former smoker. He denies alcohol use. He is and lives with his spouse. 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 ALLERGIES: Reviewed. HOME MEDICATIONS: Reviewed. REVIEW OF SYSTEMS: A 10-point review of systems was performed and is negative with the exception of that noted above. PHYSICAL EXAMINATION: VITAL SIGNS: Temperature 37.0, heart rate 53, blood pressure on most recent vital signs 166/77, and pulse oximetry 97% on room air. GENERAL APPEARANCE: Awake and oriented x3, in no acute distress. HEENT: Extraocular muscles were intact. Pupils equal and reactive to light. NECK: No bruits. No cervical lymphadenopathy. CARDIOVASCULAR: Regular rate and rhythm. No murmurs, rubs or gallops. ABDOMEN: Positive bowel sounds. Soft, nontender, and nondistended. EXTREMITIES: No clubbing, cyanosis or edema. NEUROLOGIC: No focal deficits at the present time. DIAGNOSTIC DATA: EKG performed on admission on February 18 and again on February 19 revealed sinus bradycardia and the most recent tracing at 52 beats per minute with nonspecific intraventricular conduction delay, the QRS duration is 130 milliseconds and age undetermined septal infarction cannot be excluded. The 2 EKGs this admission are very similar. These tracings were compared to a prior performed at [facility] dated 08/11/2011, at which time sinus rhythm with nonspecific intraventricular conduction delay was present. The EKG was very similar with a QRS duration of 130 milliseconds, there is a subtle loss in the R-wave progression on the current EKG in lead V2 compared to 2011. Telemetry was reviewed revealing sinus bradycardia in the 55 beats per minute range to sinus rhythm in the 65 beats per minute range. The patient's slowest heart rates were during anticipated hours of sleep overnight with heart rate as low as 45-50 beats per minute, which was sinus bradycardia, with no high grade AV block. No atrial fibrillation. No pauses noted. WBC is 6.45, hemoglobin is 14, and platelet count 178. Sodium 143, potassium 4.2, BUN 15, and creatinine 1.5. LDL cholesterol was 102. Carotid duplex reveals no evidence of a hemodynamically significant stenosis. Chest x-ray, no cardiopulmonary abnormality. CT of the brain, no hemorrhage, mass effect, or evidence of acute territorial ischemia within the CT. FINAL IMPRESSION: 1. Transient ischemic attack with transient speech difficulties. 2. EKG with chronic mild intraventricular conduction delay, stable sinus bradycardia. 3. Situational elevated blood pressure, although his blood pressures are elevated overnight last night and again this morning, they seem to be trending down, and review of the outpatient records reveals normal blood pressures previously. DISCUSSION AND RECOMMENDATIONS: Unfortunately, it appears that the patient will not be able to have an MRI because he has a piece of metal in his forehead, likely from his work in a gyroscopic engineering technician shop. He is not on antiplatelet therapy at this time due to his profound gastrointestinal bleeding problem in the past. The family is very concerned about this and they remember that medication perhaps prednisone or nonsteroidal anti-inflammatory was implicated. He had a life-threatening gastrointestinal bleeding episode in 1994 and required multiple surgical interventions and had a prolonged hospital stay for a number of weeks. His hemoglobin is stable. Could consider monotherapy with enteric coated aspirin versus clopidogrel depending upon what neurology thinks about his symptoms, but I will defer this decision to neurology or the hospitalist service. I agree with adding atorvastatin given his neurologic symptoms and mildly elevated LDL cholesterol. The EKG findings noted during this hospital stay are chronic. He has some degree of sinus bradycardia during anticipated hours of sleep, but I do not think this explains his neurologic symptoms, and a pacemaker is not indicated. I agree with obtaining a transthoracic echocardiogram to rule out occult cardioembolic source of stroke. Case was discussed with Dr. Robb. ANANDA
--- NOTE | 2017-02-19 12:40 | ECHOCARDIOGRAM REPORT ---
*NOTICE TO RECEIVING [facility] This information is strictly Confidential and protected under [place] law. [place] law prohibits you from making any further disclosure of this information unless further disclosure is expressly permitted by the written consent of the person to whom it pertains or is authorized by law. A general authorization for the release of medical or other information is not sufficient for this purpose. Hospital accepts no responsibility if the information is made available to any other person, INCLUDING THE PATIENT. Interpretation Summary * Name: TOÑITO DE LUNA Study Date: 02/19/2017 09:00 AM BP: 150/93 mmHg * Patient Location: C.2T\S\S242\S\2 HR: 75 * : 1930 (M/d/yyy) Gender: Male Height: 70 in * Age: 86 yrs Ethnicity: [place] Weight: 156 lb * Ordering Physician: Laura Pastor * Referring Physician: Self, Referred * Performed By: Ryan Pastor RDCS * * Reason For Study: TIA * BSA: 1.9 m2 * -- Conclusions -- * Aortic valve sclerosis mild, without significant aortic valvular stenosis. * The left ventricular wall motion is normal. * There is mild concentric left ventricular hypertrophy. * Ejection Fraction = 55-60%. * There is mild mitral annular calcification. * Significant mitral regurgitation is absent. * There is no mitral valve stenosis. * There is mild tricuspid regurgitation. * Doppler findings do not suggest pulmonary hypertension. * Grade I diastolic dysfunction, (abnormal relaxation pattern). * There is no evidence of atrial septal defect, but resolution does not allow assessment for a patent foramen ovale. Procedure Details * A complete two-dimensional transthoracic echocardiogram was performed (2D, M-mode, Doppler and color flow Doppler). * The study was technically adequate. Left Ventricle * The left ventricle is normal in size. * There is mild concentric left ventricular hypertrophy. * Left ventricular systolic function is normal. * Ejection Fraction = 55-60%. * The left ventricular wall motion is normal. Right Ventricle * The right ventricle is normal size. * The right ventricular systolic function is normal as assessed by tricuspid annular plane systolic excursion (TAPSE) (normal >1.5 cm). Atria * The left atrial size is normal. * Right atrial size is normal. * There is no evidence of atrial septal defect, but resolution does not allow assessment for a patent foramen ovale. Mitral Valve * There is mild mitral annular calcification. * There is no mitral valve stenosis. * Significant mitral regurgitation is absent. Tricuspid Valve * The tricuspid valve is normal. * There is no tricuspid stenosis. * There is mild tricuspid regurgitation. * Doppler findings do not suggest pulmonary hypertension. Aortic Valve * The aortic valve is trileaflet. * Aortic valve sclerosis mild, without significant aortic valvular stenosis. * Aortic stenosis is absent. * There is no significant aortic regurgitation. Pulmonic Valve * The pulmonary valve is not well seen, but the Doppler examination is normal without significant regurgitation or stenosis. Great Vessels * The aortic root and proximal ascending aorta are normal sized. Pericardium/Pleural * There is no pericardial effusion. Great Vessels * Normal inferior vena cava diameter and respiratory variation suggests normal central venous pressure. Left Ventricular Diastolic Function * Grade I diastolic dysfunction, (abnormal relaxation pattern). MMode 2D Measurements and Calculations IVSd 1.3 cm IVSs 1.7 cm LVIDd 3.9 cm LVIDs 3.0 cm LVPWd 1.3 cm LVPWs 1.7 cm IVS/LVPW 1.0 FS 24.5 % EDV(Teich) 67.8 ml ESV(Teich) 34.4 ml EF(Teich) 49.3 % EDV(cubed) 61.5 ml ESV(cubed) 26.4 ml EF(cubed) 57.0 % % IVS thick 30.1 % % LVPW thick 37.7 % LV mass(C)d 175.7 grams LV mass(C)dI 93.5 grams/m\S\2 LV mass(C)s 193.5 grams LV mass(C)sI 103.0 grams/m\S\2 SV(Teich) 33.4 ml SI(Teich) 17.8 ml/m\S\2 SV(cubed) 35.1 ml SI(cubed) 18.7 ml/m\S\2 Ao root diam 3.5 cm Ao root area 9.7 cm\S\2 ACS 1.9 cm LA dimension 4.2 cm asc Aorta Diam 3.7 cm LA/Ao 1.2 LVOT diam 2.0 cm LVOT area 3.1 cm\S\2 LVAd ap4 23.9 cm\S\2 LVLd ap4 7.7 cm EDV(MOD-sp4) 61.0 ml LVAs ap4 15.5 cm\S\2 LVLs ap4 6.7 cm ESV(MOD-sp4) 30.0 ml EF(MOD-sp4) 50.8 % LVAd ap2 21.0 cm\S\2 LVLd ap2 7.5 cm EDV(MOD-sp2) 49.0 ml LVAs ap2 12.9 cm\S\2 LVLs ap2 6.2 cm ESV(MOD-sp2) 23.0 ml EF(MOD-sp2) 53.1 % SV(MOD-sp4) 31.0 ml SI(MOD-sp4) 16.5 ml/m\S\2 SV(MOD-sp2) 26.0 ml SI(MOD-sp2) 13.8 ml/m\S\2 Doppler Measurements and Calculations MV E max stella 60.5 cm/sec MV A max stella 85.2 cm/sec MV E/A 0.71 MV dec time 0.31 sec Ao V2 max 144.5 cm/sec Ao max PG 8.3 mmHg Ao max PG (full) 5.2 mmHg SHANNA(V,A) 1.9 cm\S\2 SHANNA(V,D) 1.9 cm\S\2 AI max stella 299.5 cm/sec AI max PG 35.9 mmHg AI dec slope 60.5 cm/sec\S\2 AI P1/2t 1449.9 msec LV V1 max PG 3.1 mmHg LV V1 max 88.3 cm/sec PA V2 max 98.2 cm/sec PA max PG 3.9 mmHg PI end-d stella 64.3 cm/sec TR max stella 257.3 cm/sec
[2017-02-19] MEDS ORDERED: NURSING VERBAL MED ORDER ONE (12:45)
[2017-02-19] MEDS: MAGNESIUM HYDROXIDE SUSP 30 ML UDC PO PRN ×2 (12:57→20:18)
[2017-02-19] MEDS ORDERED: HydrALAZINE HCL 20 MG/ML VIAL IV. PRN ×2 (19:30→19:45)
[2017-02-19] MEDS: DOCUSATE SODIUM 100 MG CAP PO SCH (20:19)
[2017-02-19] MEDS: SENNA 8.6 MG TAB PO SCH (20:21)
[2017-02-20 02:56] VITALS: BP 143/74; PULSE 62; TEMP 36.7; O2SAT 96
[2017-02-20 06:26] LABS: ESTIMATED AVERAGE GLUCOSE 117 mg/dl; HA1C FLAG Normal (Normal)
[2017-02-20 07:17] VITALS: BP 135/90; PULSE 74; TEMP 36.3; O2SAT 97
[2017-02-20 07:25] LABS: BASO % 0.3 %; BASO ABS # 0.02 K/uL (0-0.2); COMPLETE YES; EOS % 3.7 %; HEMATOCRIT 41.9 % (42-52); IG% 0.1 %; LYMPH % 24.2 %; MEAN CELL VOLUME 92.3 fL (80-100); MEAN CORPUSCULAR HEMOGLOBIN 32.4 pg (25-34); MEAN CORPUSCULAR HGB CONC 35.1 g/dl (32-36); MEAN PLATELET VOLUME 10.2 fL (7.4-10.4); MONO % 5.8 %; NEUT % 65.9 %; PLATELET COUNT 183 K/uL (130-400); RED BLOOD COUNT 4.54 M/uL (4.7-6.1); WHITE BLOOD COUNT 7.02 K/uL (4.8-10.8)
[2017-02-20 07:58] LABS: BUN/CREATININE RATIO 13.8 (10-20); CALCIUM 9.6 mg/dl (8.5-10.1); CREATININE 1.6 mg/dl (0.60-1.40); POTASSIUM 4.7 mmol/L (3.5-5.1)
[2017-02-20] MEDS: MULTIVITAMIN TAB PO SCH (08:11)
[2017-02-20] MEDS: PANTOprazole SOD 40 MG TAB PO SCH (08:11)
[2017-02-20] MEDS: ATORVASTATIN 40 MG TAB PO SCH (08:11)
[2017-02-20] MEDS: CHOLECALCIFEROL 400 INTER.UNIT TAB PO SCH (08:11)
[2017-02-20] MEDS: DORZOLAMIDE/TIMOLOL 22.3/6.8MG/ML 10 ML BTL OPB SCH (08:12)
[2017-02-20] MEDS: MAGNESIUM OXIDE 400 MG TAB PO SCH (08:12)
[2017-02-20] MEDS: SUCRALFATE 1 GM TAB PO SCH (08:12)
--- NOTE | 2017-02-20 09:00 | Gastrointestinal Consultation ---
Gastrointestinal Consultation Date of Consultation: Feb 20, 2017 Consulting Physician: Jaden Reason for Consultation: hx of GI bleed, hx of PUD History of Present Illness Patient is a 86 year old male with PMH of glaucoma, duodenal ulcer requiring surgery with postop complications (1994), GERD, HTN, CKD-3 who presented to the ED with slurred speech and confusion, subsequently diagnosed with a TIA. GI is consulted for clearance of plavix given his significant history of PUD. Mr. Quintero is a poor historian and history was gathered from his . She reports that he was on a long course of steroids back in 1994. He developed 5 bleeding ulcers with perforation requiring transfer to [place] and surgery. This hospitalization was lengthy and required intubation. She is concerned about the risks of GI bleeding given his past history. She reports he has not used any medications that would impact bleeding since this incident occurred. No NSAIDs, blood thinners, steroids, ETOH etc. He denies any fever, chills, chest pain, SOB , melena, BRBPR, hematemesis or coffee ground emesis. Past Medical/Surgical History Medical Problems: (1) Contusion of right shoulder Status: Acute (2) Hypertension Status: Acute (3) Sprain of right shoulder Status: Acute Family History Diabetes mellitus FH: cancer FH: heart disease Kidney disease Social History Smoking Status: Former Smoker Marital Status: Housing Status: lives with significant other Occupation Status: retired Allergies Coded Allergies: Adhesives (Unverified Allergy, Unknown, RASH, 11/09/16) Aspirin (Unverified Allergy, Unknown, BLEEDING ULCERS, 11/09/16) Codeine (Unverified Allergy, Unknown, Rash - All over body redness, ) Latex1 -Allergic Contact Dermititis (Unverified Allergy, Unknown, LOCAL RASH, 11/09/16) NSAIDs (Verified Allergy, Unknown, _, 11/09/16) Prednisone (Verified Allergy, Unknown, 11/09/16) Primidone (Verified Allergy, Unknown, SWEATING, DIZZINESS, 11/09/16) Current Medications Home Meds and Scripts Medications Dose Route/Sig Max Daily Dose Days Date Category Vitamin D 400 Iu (Cholecalciferol) 400 Unit Cap 400 Inter.unit PO DAILY 02/18/17 Reported Cosopt Oph (Dorzolamide Hcl-Timolol Maleat) 1 Carmen Carmen 1 Drop OPB BID 02/18/17 Reported Senokot (Senna) 8.6 Mg Tab 8.6 Mg PO QPM 02/18/17 Reported Magnesium (Magnesium Oxide) 250 Mg Tab 250 Mg PO DAILY 02/18/17 Reported Stool Softener (Docusate Sodium) 100 Mg Cap 100 Mg PO QPM 02/18/17 Reported Sucralfate 1 Gm Tab 1 Gm PO TID 02/18/17 Reported Multivitamin (Multivitamins) Tab 1 Tab PO DAILY 08/11/11 Reported Prilosec (Omeprazole) 20 Mg Capcr 20 Mg PO QAM 08/11/11 Reported Review of Systems Constitutional: No chills, No fever Respiratory: No cough, No shortness of breath Cardiac: No chest pain, No edema Abdomen: No GI bleeding, No constipation, No diarrhea, No nausea, No pain, No vomiting Physical Exam Date Time Temp Pulse Resp B/P Pulse Ox O2 Delivery O2 Flow Rate FiO2 02/20/17 07:17 36.3 74 22 135/90 97 Room Air 02/20/17 04:11 Room Air 02/20/17 02:56 36.7 62 18 143/74 96 Room Air 02/20/17 00:00 Room Air 02/19/17 23:02 36.8 71 20 126/72 98 Room Air 02/19/17 20:02 96 Room Air 02/19/17 19:59 96 Room Air 02/19/17 19:17 36.6 69 18 122/88 96 Room Air 02/19/17 16:00 96 Room Air 02/19/17 15:25 36.9 71 17 175/89 94 Room Air 02/19/17 12:25 37.1 73 20 128/77 96 Room Air 02/19/17 12:00 Room Air General Appearance: no apparent distress (patient was upright in bed on the phone with his family prior to exam) Eyes: PERRL ENT: hearing grossly normal Neck: supple Respiratory/Chest: lungs clear, normal breath sounds, no respiratory distress, no accessory muscle use Cardiovascular: regular rate, rhythm, no gallop, no murmur Abdomen: normal bowel sounds, non tender, soft, no organomegaly Neurologic/Psych: alert, normal mood/affect, oriented x 3 Skin: normal color, warm/dry Laboratory Results Last 24 Hours Test 02/19/17 11:45 02/20/17 06:58 Vitamin B12 Level 706 pg/mL Folate > 24.00 ng/mL Thyroid Stimulating Hormone (TSH) 0.779 uIu/ml Rapid Plasma Reagin NONREACTIVE White Blood Count 7.02 K/uL Red Blood Count 4.54 M/uL Hemoglobin 14.7 g/dL Hematocrit 41.9 % Mean Corpuscular Volume 92.3 fL Mean Corpuscular Hemoglobin 32.4 pg Mean Corpuscular Hemoglobin Concent 35.1 g/dl Platelet Count 183 K/uL Mean Platelet Volume 10.2 fL Neutrophils (%) (Auto) 65.9 % Lymphocytes (%) (Auto) 24.2 % Monocytes (%) (Auto) 5.8 % Eosinophils (%) (Auto) 3.7 % Basophils (%) (Auto) 0.3 % Neutrophils # (Auto) 4.62 K/uL Lymphocytes # (Auto) 1.70 K/uL Monocytes # (Auto) 0.41 K/uL Eosinophils # (Auto) 0.26 K/uL Basophils # (Auto) 0.02 K/uL RDW Standard Deviation 41.8 fL RDW Coefficient of Variation 12.4 % Immature Granulocyte % (Auto) 0.1 % Immature Granulocyte # (Auto) 0.01 K/uL Sodium Level 141 mmol/L Potassium Level 4.7 mmol/L Chloride Level 103 mmol/L Carbon Dioxide Level 30 mmol/L Anion Gap 8.0 mmol/L Blood Urea Nitrogen 22 mg/dl Creatinine 1.60 mg/dl Est Creatinine Clear Calc Drug Dose 34.2 ml/min Estimated GFR () 44.6 Estimated GFR (Non- 38.4 BUN/Creatinine Ratio 13.8 Random Glucose 102 mg/dl Calcium Level 9.6 mg/dl Impression Patient is a 86 year old male with history of GI bleed and PUD w/ perforation requiring surgery (1994) after prolonged steroid use. He is admitted with a TIA and will need to be discharged home on plavix. Benefits vs risks of therapy discussed with the patient. Patient would likely benefit from plavix therapy. He would like to start Plavix therapy. Discussed potential increase risk of GI bleed/irritation - he verbalized understanding. Suggest if plavix is used to increase omeprazole to 20 mg BID to decrease GI risk. Plan PPI 20 mg BID. Continue Carafate as needed. Monitor for signs of worsening reflux and GI bleed I have seen and examined the patient with JHON Morel whose note reflects our findings and plan.
[2017-02-20] MEDS ORDERED: LPT40 PO ×2 (10:27→10:41)
[2017-02-20] MEDS ORDERED: PRLSR20 PO ×2 (10:27→10:41)
--- NOTE | 2017-02-20 10:37 | Discharge Instructions ---
Discharge Instructions Date of Service Feb 20, 2017. Admission Reason for Admission: TIA Discharge Discharge Diagnosis / Problem: TIA Discharge Goals Goal(s): Prevent Disease Progression Activity Recommendations Activity Limitations: per Instructions/Follow-up section . Instructions / Follow-Up Instructions / Follow-Up Risk Factors for Stroke: You can reduce your chances of stroke by working with your medical provider to adopt a healthy lifestyle. Some specific ways to lower your chance of stroke are: * If you are a smoker, now is the time to stop smoking cigarettes * If you are diabetic, improve the control of your blood sugars * Avoid excessive amounts of alcohol * Control high blood pressure * Lose weight if you are overweight * Be sure to lead an active lifestyle * Eat a healthy diet low in salt, cholesterol and fat You should know about other risk factors for stroke that you are unable to control. These include: * Age 55 years or older * Male gender * Certain racial groups: , or / * Family History of Stroke, Mini stroke or Heart Attack * Sickle Cell Disease Follow Up: It is important for you to keep your follow up appointments with your medical provider. ADDITIONAL PHYSICIAN INSTRUCTIONS: 1. Please take all medications as instructed. You will need Lipitor (or some statin) and Plavix indefinitely, so please obtain refills from your PCP as needed. These prescriptions were electronically transmitted to your listed preferred pharmacy. 2. You have an appointment for follow-up from this hospitalization on 02/22 @ 1: 20pm with Ms. Shiela SERRA). Please bring all paperwork from this hospitalization with you to this appointment. 3. It was a pleasure taking care of you! Call if you have any questions or problems. You can reach a [facility] hospitalist on duty at [facility] 24 hours a day by calling [phone]. Take care of yourself. Erin Robb, [facility] Hospitalist Current Hospital Diet Patient's current hospital diet: AHA Diet (Heart Healthy) Discharge Diet Recommended Diet: AHA Diet (Heart Healthy) Procedures Procedures Performed: TTE Pending Studies Studies pending at discharge: no Laboratory Results Hemoglobin A1c Test 02/18/17 17:00 Range/Units Estimated Average Glucose 117 mg/dl Hemoglobin A1c 5.7 H 4.5-5.6 % Lipid Panel Test 02/19/17 06:31 Range/Units Triglycerides Level 81 0-150 mg/dl Cholesterol Level 165 0-200 mg/dl HDL Cholesterol 47 mg/dl Cholesterol/HDL Ratio 3.5 LDL Cholesterol, Calculated 102 mg/dl Medical Emergencies . Who to Call and When: Medical Emergencies: Call 911 immediately if you experience any of the following warning signs and symptoms of Stroke: * Sudden numbness or weakness of the face, arm or leg, especially on one side of the body * Sudden confusion, trouble speaking or understanding * Sudden trouble seeing in one or both eyes * Sudden trouble walking, dizziness, loss of balance or coordination * Sudden severe headache with no cause Do not delay calling 911 if you experience any warning signs or symptoms of a stroke. Delay in seeking medical attention may affect what treatments can be given to you. . Non-Emergent Contact Non-Emergency issues call your: Primary Care Provider . . "Provider Documentation" section prepared by Erin Robb. Stroke Core Measures Reason no t-PA for Stroke: Treatment not indicated Reason no antithrom by day 2: Contraindicated Reason no antithrom at D/C: Treatment provided - N/A Reason no statin at D/C: Treatment provided - N/A Reason no anticoag w/a fib: Treatment not indicated VTE Core Measure Inpt VTE Proph given/why not?: SCD's (h/o severe GI bleed)
[2017-02-20] MEDS ORDERED: CLOP1TAB5 PO (10:41)
[2017-02-20 11:23] VITALS: BP 135/90; PULSE 74; TEMP 36.3; O2SAT 97
--- NOTE | 2017-02-20 11:43 | Pharmacy Progress Note ---
Pharmacist Stroke Counseling Date of Service Feb 20, 2017. Scope Pharmacy has been consulted to provide medication discharge counseling for this patient admitted with ischemic stroke/hemorrhagic stroke/ transient ischemic attack as per the Pharmacist Discharge Counseling for Stroke Patients Protocol. Medications on Discharge New Medications: Clopidogrel Bisulfate (Plavix) 75 Mg Tab 75 MG PO DAILY for 30 Days, #30 TAB 2 Refills Atorvastatin (Atorvastatin Calcium) 40 Mg Tab 40 MG PO QAM for 30 Days, #30 TAB Continued Medications: Cholecalciferol (Vitamin D 400 Iu) 400 Unit Cap 400 INTER.UNIT PO DAILY, CAP Docusate Sodium (Stool Softener) 100 Mg Cap 100 MG PO QPM Dorzolamide Hcl-Timolol Maleat (Cosopt Oph) 1 Carmen Carmen 1 DROP OPB BID, ML Magnesium Oxide (Magnesium) 250 Mg Tab 250 MG PO DAILY Multivitamin (Multivitamin) Tab 1 TAB PO DAILY Omeprazole (Prilosec) 20 Mg Capcr 20 MG PO BID for 30 Days, #60 CAP (This prescription has been renewed) Senna (Senokot) 8.6 Mg Tab 8.6 MG PO QPM, TAB Sucralfate (Sucralfate) 1 Gm Tab 1 GM PO TID, TAB Outcome Stroke counseling not completed by pharmacy as notification of discharge was not received in time. When I spoke with the nurse, the patient was on the way out in a wheelchair. Will attempt to contact patient at home within 72 hours of discharge to review medication related questions at that time.
--- NOTE | 2017-02-20 20:08 | Progress Note ---
Internal Med Progress Note Date of Service: Feb 20, 2017. Provider Documentation: SUBJECTIVE: resting comfortably on the chair ambulating fine speech clear no sob or cough afebrile wants to be discharged OBJECTIVE: Vital Signs-as noted below Exam: General-alert and oriented x 3 Not in distress ENT-normal hearing Neck-no neck masses Lungs-cta b/l no wheezing no crackles Heart-s1 and s2 heard regular rate and rhythm no murmurs' Abdomen-soft bowel sounds present non tender no distension Extremities-no edema no erythema Neuro-alert and awake non focal moves extremities Lab data as noted below. ASSESSMENT & PLAN: 86 yoM with TIA symptoms over 3 days [employer] 1. TIA-no events on tele overnight and no reoccurrence of TIA symptoms.Asymptomatic now CT head negative; MRI cancelled 2/2 metallic FB in scalp. Lipid panel looks fine. TTE unremarkable. Carotids are normal. seen by GI for hx of significant gastric ulcers in 1994 after prolong course of steroids. Gi ok for starting on Plavix. Patient and to decide about taking Plavix after discussing with PCP. Also started on Lipitor. 2. HTN-in 190s systolic on arrival but went to 150s without intervention. Permissive HTN in setting of TIA/poss stroke. Not on any antihypertensives, which will likely need to be added once out of the acute period. BP stable at discharge. followup with pcp. 3. CKD Stage III-at baseline creatinine. 4. h/o PUD-avoid prednisone, cont PPI and carafate. Increased Prilosec to 20mg bid as starting on Plavix. 5. Glaucoma-cont home eye drops Discharged home Vital Signs: Date Time Temp Pulse Resp B/P Pulse Ox O2 Delivery O2 Flow Rate FiO2 02/20/17 11:23 36.3 74 22 97 Room Air 02/20/17 08:00 Room Air 02/20/17 07:17 36.3 74 22 135/90 97 Room Air 02/20/17 04:11 Room Air 02/20/17 02:56 36.7 62 18 143/74 96 Room Air 02/20/17 00:00 Room Air 02/19/17 23:02 36.8 71 20 126/72 98 Room Air Lab Results: Results Past 24 Hours Test 02/20/17 06:58 Range/Units White Blood Count 7.02 4.8-10.8 K/uL Red Blood Count 4.54 4.7-6.1 M/uL Hemoglobin 14.7 14.0-18.0 g/dL Hematocrit 41.9 42-52 % Mean Corpuscular Volume 92.3 80-100 fL Mean Corpuscular Hemoglobin 32.4 25-34 pg Mean Corpuscular Hemoglobin Concent 35.1 32-36 g/dl Platelet Count 183 130-400 K/uL Mean Platelet Volume 10.2 7.4-10.4 fL Neutrophils (%) (Auto) 65.9 % Lymphocytes (%) (Auto) 24.2 % Monocytes (%) (Auto) 5.8 % Eosinophils (%) (Auto) 3.7 % Basophils (%) (Auto) 0.3 % Neutrophils # (Auto) 4.62 1.4-6.5 K/uL Lymphocytes # (Auto) 1.70 1.2-3.4 K/uL Monocytes # (Auto) 0.41 0.11-0.59 K/uL Eosinophils # (Auto) 0.26 0-0.5 K/uL Basophils # (Auto) 0.02 0-0.2 K/uL RDW Standard Deviation 41.8 36.4-46.3 fL RDW Coefficient of Variation 12.4 11.5-14.5 % Immature Granulocyte % (Auto) 0.1 % Immature Granulocyte # (Auto) 0.01 0.00-0.02 K/uL Sodium Level 141 136-145 mmol/L Potassium Level 4.7 3.5-5.1 mmol/L Chloride Level 103 98-107 mmol/L Carbon Dioxide Level 30 21-32 mmol/L Anion Gap 8.0 3-11 mmol/L Blood Urea Nitrogen 22 7-18 mg/dl Creatinine 1.60 0.60-1.40 mg/dl Est Creatinine Clear Calc Drug Dose 34.2 ml/min Estimated GFR () 44.6 Estimated GFR (Non- 38.4 BUN/Creatinine Ratio 13.8 10-20 Random Glucose 102 70-99 mg/dl Calcium Level 9.6 8.5-10.1 mg/dl
--- NOTE | 2017-02-23 19:25 | Discharge Summary ---
Discharge Summary Date of Service Feb 23, 2017. Discharge Summary Admission Date: Feb 18, 2017 at 18:33 Discharge Date: Feb 20, 2017 Discharge Disposition: Home Principal Diagnosis: TIA Secondary Diagnoses/Problems: (1) CKD (chronic kidney disease), stage III Status: Chronic (2) GERD (gastroesophageal reflux disease) Status: Chronic (3) Glaucoma Status: Chronic Procedures: CT HEAD: There is no hemorrhage, mass effect, or evidence of acute territorial ischemia by CT criteria. CAROTID US: No evidence of a hemodynamically significant stenosis ECHO: Aortic valve sclerosis mild, without significant aortic valvular stenosis. * The left ventricular wall motion is normal. * There is mild concentric left ventricular hypertrophy. * Ejection Fraction = 55-60%. * There is mild mitral annular calcification. * Significant mitral regurgitation is absent. * There is no mitral valve stenosis. * There is mild tricuspid regurgitation. * Doppler findings do not suggest pulmonary hypertension. * Grade I diastolic dysfunction, (abnormal relaxation pattern). * There is no evidence of atrial septal defect, but resolution does not allow assessment for a patent foramen ovale. Consultations: Neuro CARDIOLOGY Medication Reconciliation New Medications: Clopidogrel Bisulfate (Plavix) 75 Mg Tab 75 MG PO DAILY for 30 Days, #30 TAB 2 Refills Atorvastatin (Atorvastatin Calcium) 40 Mg Tab 40 MG PO QAM for 30 Days, #30 TAB Continued Medications: Cholecalciferol (Vitamin D 400 Iu) 400 Unit Cap 400 INTER.UNIT PO DAILY, CAP Docusate Sodium (Stool Softener) 100 Mg Cap 100 MG PO QPM Dorzolamide Hcl-Timolol Maleat (Cosopt Oph) 1 Carmen Carmen 1 DROP OPB BID, ML Magnesium Oxide (Magnesium) 250 Mg Tab 250 MG PO DAILY Multivitamin (Multivitamin) Tab 1 TAB PO DAILY Omeprazole (Prilosec) 20 Mg Capcr 20 MG PO BID for 30 Days, #60 CAP (This prescription has been renewed) Senna (Senokot) 8.6 Mg Tab 8.6 MG PO QPM, TAB Sucralfate (Sucralfate) 1 Gm Tab 1 GM PO TID, TAB Admission Information HPI (per Admitting provider): Patient seen and examined. 86 year old male with PMHx of CKD stage 3, presents to the ED complaining of slurred speech prior to arrival. Patient reports that he has had 2 episodes of slurred speech in the last two days. He reports the episodes last about 15 minutes and then resolve. reports that during the episode the patient seems confused. She did not notice that he had any facial droop. He denies unilateral weakness. They called [facility] who told the patient to go to the ED and the patient arrived several hours later, and reports he is back at baseline. He denies falls, head trauma, lightheadedness, syncope, URI symptoms, chest pain, SOB, nausea, vomiting, diarrhea, dysuria, calf pain and edema. He denies ever having these episodes previously. He denies history of heart problems, HTN. In the ED patient was initially hypertensive with SBP 198. This improved ot [address] head was negative, CBC, PRP, UA were essentially unremarkable. Patient has a history of severe GI bleed while taken Aspirin so aspirin was not given. He will be admitted for further workup and treatment. Physical Exam (per Admitting): General Appearance: + pertinent finding (WD/WN 86 year old male lying in bed in NAD with at bedside) Head: normocephalic, atraumatic Eyes: PERRL, EOMI, sclerae normal ENT: hearing grossly normal, pharynx normal Neck: supple, no JVD Respiratory/Chest: chest non-tender, lungs clear, normal breath sounds, no respiratory distress, no accessory muscle use Cardiovascular: regular rate, rhythm, no edema, no gallop, no JVD, no murmur , normal peripheral pulses Abdomen/GI: normal bowel sounds, non tender, soft Back: normal inspection, no muscle spasm Extremities/Musculoskelatal: no calf tenderness, normal capillary refill, no pedal edema 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 TIA-no events on tele overnight and no reoccurrence of TIA symptoms.Asymptomatic now CT head negative; MRI cancelled 2/2 metallic FB in scalp. Lipid panel looks fine. TTE unremarkable. Carotids are normal. seen by GI for hx of significant gastric ulcers in 1994 after prolong course of steroids. Gi ok for starting on Plavix. Patient and to decide about taking Plavix after discussing with PCP. Also started on Lipitor. 2. HTN-in 190s systolic on arrival but went to 150s without intervention. Permissive HTN in setting of TIA/poss stroke. Not on any antihypertensives, which will likely need to be added once out of the acute period. BP stable at discharge. followup with pcp. 3. CKD Stage III-at baseline creatinine. 4. h/o PUD-avoid prednisone, cont PPI and carafate. Increased Prilosec to 20mg bid as starting on Plavix. 5. Glaucoma-cont home eye drops Discharged home Total time spent on discharge = 40MINUTES This includes examination of the patient, discharge planning, medication reconciliation, and communication with other providers. Discharge Instructions Discharge Instructions Date of Service Feb 20, 2017. Admission Reason for Admission: TIA Discharge Discharge Diagnosis / Problem: TIA Discharge Goals Goal(s): Prevent Disease Progression Activity Recommendations Activity Limitations: per Instructions/Follow-up section . Instructions / Follow-Up Instructions / Follow-Up Risk Factors for Stroke: You can reduce your chances of stroke by working with your medical provider to adopt a healthy lifestyle. Some specific ways to lower your chance of stroke are: * If you are a smoker, now is the time to stop smoking cigarettes * If you are diabetic, improve the control of your blood sugars * Avoid excessive amounts of alcohol * Control high blood pressure * Lose weight if you are overweight * Be sure to lead an active lifestyle * Eat a healthy diet low in salt, cholesterol and fat You should know about other risk factors for stroke that you are unable to control. These include: * Age 55 years or older * Male gender * Certain racial groups: , or / * Family History of Stroke, Mini stroke or Heart Attack * Sickle Cell Disease Follow Up: It is important for you to keep your follow up appointments with your medical provider. ADDITIONAL PHYSICIAN INSTRUCTIONS: 1. Please take all medications as instructed. You will need Lipitor (or some statin) and Plavix indefinitely, so please obtain refills from your PCP as needed. These prescriptions were electronically transmitted to your listed preferred pharmacy. 2. You have an appointment for follow-up from this hospitalization on 02/22 @ 1: 20pm with . Shiela Vega (RANDELL). Please bring all paperwork from this hospitalization with you to this appointment. 3. It was a pleasure taking care of you! Call if you have any questions or problems. You can reach a [facility] hospitalist on duty at [facility] 24 hours a day by calling [phone]. Take care of yourself. Erin Robb DO [facility] Hospitalist Current Hospital Diet Patient's current hospital diet: AHA Diet (Heart Healthy) Discharge Diet Recommended Diet: AHA Diet (Heart Healthy) Procedures Procedures Performed: TTE Pending Studies Studies pending at discharge: no Laboratory Results Hemoglobin A1c Test 02/18/17 17:00 Range/Units Estimated Average Glucose 117 mg/dl Hemoglobin A1c 5.7 H 4.5-5.6 % Lipid Panel Test 02/19/17 06:31 Range/Units Triglycerides Level 81 0-150 mg/dl Cholesterol Level 165 0-200 mg/dl HDL Cholesterol 47 mg/dl Cholesterol/HDL Ratio 3.5 LDL Cholesterol, Calculated 102 mg/dl Medical Emergencies . Who to Call and When: Medical Emergencies: Call 911 immediately if you experience any of the following warning signs and symptoms of Stroke: * Sudden numbness or weakness of the face, arm or leg, especially on one side of the body * Sudden confusion, trouble speaking or understanding * Sudden trouble seeing in one or both eyes * Sudden trouble walking, dizziness, loss of balance or coordination * Sudden severe headache with no cause Do not delay calling 911 if you experience any warning signs or symptoms of a stroke. Delay in seeking medical attention may affect what treatments can be given to you. . Non-Emergent Contact Non-Emergency issues call your: Primary Care Provider . . "Provider Documentation" section prepared by Erin Robb. Stroke Core Measures Reason no t-PA for Stroke: Treatment not indicated Reason no antithrom by day 2: Contraindicated Reason no antithrom at D/C: Treatment provided - N/A Reason no statin at D/C: Treatment provided - N/A Reason no anticoag w/a fib: Treatment not indicated VTE Core Measure
== END 2017-02-20 11:40 | disposition home or self-care (01) | DRG 69 ==
LOC: ENRESERVTM → ENRESERVDT → C.EDB 16:38 → C.2T 18:33
PROVIDERS: ADMIT Internal Medicine; ATTEND Internal Medicine
DX: G45.9 Transient cerebral ischemic attack, unspecified (principal); N18.3 Chronic kidney disease, stage 3 (moderate); K21.9 Gastro-esophageal reflux disease without esophagitis; R00.1 Bradycardia, unspecified; I45.9 Conduction disorder, unspecified; H40.9 Unspecified glaucoma; R47.81 Slurred speech; I12.9 Hypertensive chronic kidney disease with stage 1 through stage 4 chronic kidney disease, or unspecified chronic kidney disease; Z87.11 Personal history of peptic ulcer disease; Z87.19 Personal history of other diseases of the digestive system; Z87.891 Personal history of nicotine dependence; Z79.899 Other long term (current) drug therapy

== ENCOUNTER 2019-08-09 10:56 | Inpatient (IN) ==
[2019-08-09] MEDS ORDERED: SODIUM CHLORIDE 0.9% 500 ML IV SCH (11:30)
[2019-08-09 11:32] LABS: Basophils # (auto) 0.01 K/uL (0-0.2); Basophils % (auto) 0.1 %; Eosinophils % (auto) 0.8 %; Hematocrit (blood only) 41.1 % (42-52); Hemoglobin 14.1 g/dL (14.0-18.0); Immature Granulocytes # (auto) 0.04 K/uL (0.00-0.02); Immature Granulocytes % (auto) 0.3 %; Lymphocytes # (auto) 1.48 K/uL (1.2-3.4); Lymphocytes % (auto) 11.5 %; Mean Corpuscular Hgb Conc 34.3 g/dL (32-36); Mean Corpuscular Volume 92.2 fL (80-100); Mean Platelet Volume 9.8 fL (7.4-10.4); Monocytes # (auto) 1.09 K/uL (0.11-0.59); Monocytes % (auto) 8.5 %; Neutrophils % (auto) 78.8 %; Platelet Count 172 K/uL (130-400); RDW Coefficient of Variation 12.6 % (11.5-14.5); RDW Standard Deviation 42.5 fL (36.4-46.3); Red Blood Count 4.46 M/uL (4.7-6.1); White Blood Count 12.82 K/uL (4.8-10.8)
--- NOTE | 2019-08-09 11:35 | XRay Report ---
XR chest 1V portable CLINICAL HISTORY: Atypical chest pain COMPARISON STUDY: 02/18/2017 FINDINGS: The cardiac and mediastinal contours are normal. There is no evidence of focal pulmonary co nsolidation. There is no evidence of failure. No pleural effusions are visualized.[There is mild basi lar atelectasis/scarring. IMPRESSION: No active disease in the chest. Electronically signed by: José Manuel Arnett M.D. 08/09/2019 11:33 AM
[2019-08-09 11:43] LABS: Partial Thromboplastin Ratio 0.9; Partial Thromboplastin Time 25.5 Seconds (21.0-31.0); Prothrombin Time 10.3 Seconds (9.0-12.0)
[2019-08-09 11:51] LABS: Albumin Level 3.9 gm/dl (3.4-5.0); BUN Creatinine Ratio 11.8 (10-20); Calcium 8.9 mg/dl (8.5-10.1); Creatinine Clr Calc Pharmacy 34.2 ml/min; Est GFR (African American) 49.1; Est GFR (Non-African American) 42.4; Potassium 4.1 mmol/L (3.5-5.1)
[2019-08-09 11:56] LABS: Bilirubin,Total 0.7 mg/dl (0.2-1); Globulin 3.9 gm/dl (2.5-4.0); Total Protein 7.8 gm/dl (6.4-8.2); Troponin I 0.023 ng/ml (0-0.045)
--- NOTE | 2019-08-09 13:20 | CT Scan Report ---
CT abd pelvis wo con CT DOSE: 560.30 mGycm HISTORY: Pain eval for bowel obst TECHNIQUE: Multiaxial CT images of the abdomen and pelvis were performed without contrast. A dose lo wering technique was utilized adhering to the principles of ALARA. COMPARISON STUDY: None. FINDINGS: Lung bases are clear. The liver spleen and pancreas appear unremarkable. Moderate fatty rep lacement of the pancreas. Somewhat distended gallbladder with several gallstones in the region of the gallbladder neck. Operative changes to the bowel and right anterior abdominal region suggesting a prior bowel resection . Anastomotic lines appear patent. Possible components of or prior partial distal gastrectomy. Bowel pattern overall is nonobstructive. Bladder is midline. No significant abdominal pelvic or ingui nal volodymyr pathology. IMPRESSION: 1. Postoperative changes consistent with a prior partial bowel resection and possibly partial distal partial gastrectomy. 2. Postoperative changes including scarring/deformity of the right anterior abdominal wall. 3. Bowel pattern is nonobstructive. 4. Moderate distention of the gallbladder with several gallstones in the region of the gallbladder ne ck. 5. Right upper quadrant ultrasonography could BE of further assistance to evaluate the gallbladder an d biliary tract. The above report was generated using voice recognition software. It may contain grammatical, syntax or spelling errors. Electronically signed by: Mitch Mary M.D. 08/09/2019 1:18 PM
--- NOTE | 2019-08-09 14:39 | Ultrasound Report ---
US gallbladder CLINICAL HISTORY: 89 years-old Male presenting with cholelithiasis. TECHNIQUE: Real-time grayscale and limited color Doppler ultrasound imaging of the abdomen limited to the right upper quadrant was performed. COMPARISON: CT from earlier today. FINDINGS: Pancreas: Visualized portions of the pancreatic head and body normal. Liver: Normal echogenicity and echotexture. No sonographic evidence of hepatic mass. Main portal vein patent with normal directional flow. Biliary: No intrahepatic biliary ductal dilatation. Common bile duct measures up to 6 mm in diameter. Gallbladder: Gallstones at the gallbladder neck with mild gallbladder wall thickening measuring 4 mm. There is mild gallbladder distention with the gallbladder length measuring 8.8 cm. No pericholecysti c fluid or inflammatory change. Right kidney: Cortical atrophy is suggested. Ascites: None. Other: None. IMPRESSION: Cholelithiasis and gallbladder wall thickening. Findings may suggest early acute calculus cholecystit is. Consider HIDA scan for further evaluation. Electronically signed by: Oleksandr Cordova M.D. 08/09/2019 2:38 PM
[2019-08-09] MEDS ORDERED: PIPERACILLIN/TAZOBACTAM 4.5 GM/120 ML BAG IV ONE (15:26)
[2019-08-09] MEDS ORDERED: PIPERACILL/TAZOBAC CONSULT ACTIVE PRN (15:26)
--- NOTE | 2019-08-09 16:10 | Surgery Consultation ---
Date of Consultation August 09, 2019 Assessment & Plan (1) Abdominal pain: Patient seen in ED with Dr. Meyers. Equivocal imaging findings of cholecystitis, he does not have any acute clinical findings. Has large hernia, extensive surgical history, surgery will be difficult. Would treat with IV abx, keep NPO for tonight. HIDA would not impact clinical decision making at this point, may consider if his condition changes. History of Present Illness History of Present Illness 89 y/o male had several episodes of vomiting last evening after spaghetti and meatball dinner. Had some generalized abdominal discomfort. Vomited again this morning after breakfast. No symptoms like this in the past. Had several procedures for bleeding ulcers (partial gastrectomy) and postoperative abscess in [address] [facility] [place]. Allergies Allergy/AdvReac Type Severity Reaction Status Date / Time adhesive Allergy Unknown RASH Unverified 08/09/19 11:51 aspirin Allergy Unknown BLEEDING Unverified 08/09/19 11:51 ULCERS codeine Allergy Unknown Rash - All Unverified 08/09/19 11:51 over body redness latex Allergy Unknown LOCAL RASH Unverified 08/09/19 11:51 NSAIDS (Non-Steroidal Allergy Unknown _ Verified 08/09/19 11:51 Anti-Inflamma prednisone Allergy Unknown Verified 08/09/19 11:51 primidone Allergy Unknown SWEATING, Verified 08/09/19 11:51 DIZZINESS Home Medications Home Medications Medication Instructions Recorded Confirmed Type cholecalciferol (vitamin D3) 400 unit PO QAM 08/09/19 08/09/19 History [Vitamin D3] docusate sodium 100 mg PO DAILY@1800 08/09/19 08/09/19 History dorzolamide-timolol 1 drp OPB BID 08/09/19 08/09/19 History magnesium oxide 250 mg PO QAM 08/09/19 08/09/19 History multivitamin 1 tab PO QAM 08/09/19 08/09/19 History omeprazole 20 mg PO QAM 08/09/19 08/09/19 History sennosides [Senna Lax] 17.2 mg PO HS 08/09/19 08/09/19 History sucralfate 1 g PO BID 08/09/19 08/09/19 History Patient History Social History Feels Safe at Home: Yes Smoking Status: Former smoker Review of Systems Constitutional: no fever and no chills Gastrointestinal: + abdominal pain, + nausea, + vomiting and + problem reported (mid back pain last night ) Physical Exam Constitutional: no acute distress Respiratory: normal respiratory effort; no respiratory distress Cardiovascular: Rate/Rhythm: regular rate and regular rhythm Gastrointestinal (Abdomen): Inspection/Auscultation: abdomen not distended Percussion/Palpation: abdomen soft and + hernia (large RUQ hernia at subcostal scar); abdomen nontender Psychiatric: Cognition: recent memory grossly intact Results & Data Vital Signs (Past 12 Hours) Vital Signs Temp Pulse Pulse Resp BP BP Pulse Ox 08/09/19 14:52 75 24 197/112 H 97 08/09/19 13:11 71 20 183/101 H 96 08/09/19 12:20 58 L 22 166/80 H 96 08/09/19 11:23 97 08/09/19 11:05 36.8 C 69 20 184/101 H 96 Diagnostic Findings US gallbladder CLINICAL HISTORY: 89 years-old Male presenting with cholelithiasis. TECHNIQUE: Real-time grayscale and limited color Doppler ultrasound imaging of the abdomen limited to the right upper quadrant was performed. COMPARISON: CT from earlier today. FINDINGS: Pancreas: Visualized portions of the pancreatic head and body normal. Liver: Normal echogenicity and echotexture. No sonographic evidence of hepatic mass. Main portal vein patent with normal directional flow. Biliary: No intrahepatic biliary ductal dilatation. Common bile duct measures up to 6 mm in diameter. Gallbladder: Gallstones at the gallbladder neck with mild gallbladder wall thickening measuring 4 mm. There is mild gallbladder distention with the gallbladder length measuring 8.8 cm. No pericholecystic fluid or inflammatory change. Right kidney: Cortical atrophy is suggested. Ascites: None. Other: None. IMPRESSION: Cholelithiasis and gallbladder wall thickening. Findings may suggest early acute calculus cholecystitis. Consider HIDA scan for further evaluation. Electronically signed by: Oleksandr Cordova M.D. 08/09/2019 2:38 PM PG Care Time/CCT Total # of Minutes Spent Total Time Spent with Patient: Total time spent is greater than 50% in coordination of care (as documented) at patient's floor/unit and/or counseling patient:
[2019-08-09] MEDS ORDERED: ACETAMINOPHEN 1,000 MG/100 ML VIAL IV STA (16:32)
--- NOTE | 2019-08-09 16:40 | History & Physical Report ---
Date of Service August 09, 2019 Assessment & Plan (1) Abdominal pain: (2) Vomiting: Pt is 89 y/o M with PMH CKD III, TIA (not on plavix or aspirin), h/o perforated duodenal ulcer requiring surgery and had postop complication in 1994, GERD, essential tremor, dyslipidemia, dementia presented to ER with complaint of several episodes of vomiting and epigastric discomfort since last evening. Denies fever/chills, hematemesis, melena, hematochezia, In ER pt afebrile, P: 69, R; 20, BP: 184/101, 96% on RA. WBC: 12, H/H: 14/41, Troponin: 0.023, Normal LFTs, normal lipase GALLBLADDER US:Cholelithiasis and gallbladder wall thickening. Findings may suggest early acute calculus cholecystitis. Consider HIDA scan for further evaluation. CT ABD/PELVIS:1. Postoperative changes consistent with a prior partial bowel resection and possibly partial distal partial gastrectomy. 2. Postoperative ch anges including scarring/deformity of the right anterior abdominal wall. 3. Bowel pattern is nonobstructive. 4. Moderate distention of the gallbladder with several gallstones in the region of the gallbladder neck. 5. Right upper quadrant ultrasonography could BE of further assistance to evaluate the gallbladder and biliary tract. CXR: No active disease in the chest. Possible cholecystitis -In ER pt given Zosyn, 500ml NSS -Zosyn -NPO -Gentle IVF -IV Tylenol prn pain. Pt's very concerned about other narcotic meds. Will monitor and adjust pain control as needed -General surgery consult, recommends NPO for now, no immediate surgical intervention -CBC, CMP in am (3) Elevated blood pressure reading: In ER BP's 184/101, 197/112, 175/95 No hx HTN. SBPs at outpatient visit in 120's May be secondary to discomfort -Will give dose IV Tylenol and monitor BP response. -If BP continues to be elevated will give dose amlodipine -Monitor (4) Dementia: Pt pleasant and cooperative. Oriented to person, knows in hospital At baseline per -Monitor for delirium (5) Duodenal ulcer: H/O perforated duodenal ulcer after on prolonged oral steroids requiring surgery and had postop complication in 1994 No melena, hematochezia, hematemesis -Continue PPI, Carafate (6) TIA (transient ischemic attack): H/O TIA Not on Aspirin or Plavix secondary to pt and pt's wishes with pt's prior hx bleeding gastric ulcer and surgical repair (7) CKD (chronic kidney disease), stage III: Cr: 1.4. Baseline ~1.6 -Monitor renal functions -Avoid nephrotoxic agents when possible DVT Prophylaxis -SCDs for now in case of surgical procedure Full Code as per discussion with pt and pt's [phone], however report would not want on prolonged life support if poor prognosis. Follows with Dr Vela for routine care Pt was seen and care coordinated with Dr Frank. See addendum History of Present Illness Chief Complaint: Vomiting Primary Care Provider: Paulino Vela MD Pt is 89 y/o M with PMH CKD III, TIA (not on plavix or aspirin), h/o perforated duodenal ulcer requiring surgery and had postop complication in 1994, GERD, essential tremor, dyslipidemia, dementia presented to ER with complaint of vomiting and epigastric discomfort. it is reported last night patient with numerous episodes of vomiting which started after eating spaghetti. Reports ate Faroese muffin, cereal and half a banana this morning approximately 45 minutes later had 2 episodes of vomiting. Patient points to epigastric and right upper quadrant as area of discomfort reports " area smarts". Patient does not feel pain radiates, is unable to describe or rate his pain. reports patient's current mental status is at his baseline. Denies any known fever or chills. Patient denies any shortness of breath or chest pain. Reports last BM yesterday which was formed stool. Denies hematemesis, hematochezia, melena, DAVALOS, dizziness, syncope, vision changes, neck pain, CP, SOB, orthopnea, palpitations, cough, sore throat, choking, otalgia, rhinorrhea, paresthesias, weakness, extremity weakness, extremity edema, rashes, urinary symptoms. Allergies Allergy/AdvReac Type Severity Reaction Status Date / Time adhesive Allergy Unknown RASH Unverified 08/09/19 11:51 aspirin Allergy Unknown BLEEDING Unverified 08/09/19 11:51 ULCERS codeine Allergy Unknown Rash - All Unverified 08/09/19 11:51 over body redness latex Allergy Unknown LOCAL RASH Unverified 08/09/19 11:51 NSAIDS (Non-Steroidal Allergy Unknown _ Verified 08/09/19 11:51 Anti-Inflamma prednisone Allergy Unknown Verified 08/09/19 11:51 primidone Allergy Unknown SWEATING, Verified 08/09/19 11:51 DIZZINESS Home Medications Home Medications Medication Instructions Recorded Confirmed Type cholecalciferol (vitamin D3) 400 unit PO QAM 08/09/19 08/09/19 History [Vitamin D3] docusate sodium 100 mg PO DAILY@1800 08/09/19 08/09/19 History dorzolamide-timolol 1 drp OPB BID 08/09/19 08/09/19 History magnesium oxide 250 mg PO QAM 08/09/19 08/09/19 History multivitamin 1 tab PO QAM 08/09/19 08/09/19 History omeprazole 20 mg PO QAM 08/09/19 08/09/19 History sennosides [Senna Lax] 17.2 mg PO HS 08/09/19 08/09/19 History sucralfate 1 g PO BID 08/09/19 08/09/19 History Past Med/Surg History Medical History Dementia (Chronic) Dyslipidemia (Chronic) Duodenal ulcer (Chronic) Abdominal pain GERD (gastroesophageal reflux disease) (Chronic) CKD (chronic kidney disease), stage III (Chronic) TIA (transient ischemic attack) (Chronic) Glaucoma (Chronic) Surgical History H/O knee surgery (Chronic) H/O colonoscopy (Chronic) History of esophagogastroduodenoscopy (EGD) (Chronic) History of cataract surgery (Chronic) History of gastric surgery (Chronic) Family History Other Cancer Coronary heart disease Diabetes Social History Feels Safe at Home: Yes Smoking Status: Former smoker Hx Alcohol Use: No Hx Substance Use: No Review of Systems Review of Systems: All systems reviewed & are unremarkable except as noted in HPI & below Physical Exam Physical Exam: General: no acute distress, WDWN Head: normocephalic, atraumatic Eyes: PERRL, EOM's intact, conjunctiva non-injected, anicteric ENT: normal inspection external ears, nose, mucous membranes moist Neck: supple, trachea midline Lungs: clear, no respiratory distress, no wheezing/rhonchi/rales CV: RRR, no murmur, no pretibial edema Abd: normal BS, soft, +mild tenderness to palpation epigastric and RUQ without rebound or guarding Ext: no cyanosis, no calf tenderness Neuro: Alert, oriented to person, knows in hospital unsure which hospital or location, not oriented to time, no focal deficits noted, normal affect Skin: warm, dry Results & Data Vital Signs (Past 12 Hours) Vital Signs Temp Pulse Pulse Resp BP BP Pulse Ox 08/09/19 16:03 76 22 199/97 H 96 08/09/19 14:52 75 24 197/112 H 97 08/09/19 13:11 71 20 183/101 H 96 08/09/19 12:20 58 L 22 166/80 H 96 08/09/19 11:23 97 08/09/19 11:05 36.8 C 69 20 184/101 H 96 Laboratory Results Short CBC 08/09/19 Range/Units 11:21 WBC 12.82 H (4.8-10.8) K/uL Hgb 14.1 (14.0-18.0) g/dL Hct 41.1 L (42-52) % Plt Count 172 (130-400) K/uL BMP 08/09/19 11:21 Sodium 137 Potassium 4.1 Chloride 103 Carbon Dioxide 28 BUN 17 Creatinine 1.45 H Glucose 108 H Calcium 8.9 Cardiac Enzymes 08/09/19 Range/Units 11:21 Troponin I 0.023 (0-0.045) ng/ml Liver Function 08/09/19 Range/Units 11:21 Total Bilirubin 0.7 (0.2-1) mg/dl AST 20 (15-37) U/L ALT 26 (12-78) U/L Alkaline Phosphatase 71 (45-117) U/L Albumin 3.9 (3.4-5.0) gm/dl Diagnostic Findings GALLBLADDER US: IMPRESSION: Cholelithiasis and gallbladder wall thickening. Findings may suggest early acute calculus cholecystitis. Consider HIDA scan for further evaluation. CT ABD/PELVIS: IMPRESSION: 1. Postoperative changes consistent with a prior partial bowel resection and possibly partial distal partial gastrectomy. 2. Postoperative changes including scarring/deformity of the right anterior abdominal wall. 3. Bowel pattern is nonobstructive. 4. Moderate distention of the gallbladder with several gallstones in the region of the gallbladder neck. 5. Right upper quadrant ultrasonography could BE of further assistance to evaluate the gallbladder and biliary tract. CXR: IMPRESSION: No active disease in the chest. ECG Rate (beats per minute): 67 Rhythm: sinus rhythm Code Status & VTE Plan VTE Prophylaxis Plan VTE Prophylaxis will be ordered: Yes Supervising Physician Co-Signing Physician Notes I, Dr. Avelino Frank, have seen and examined the patient with physician bilingual teacher assistant and agree with the assessment and plan and would like to comment This is a 89 year old male who presents to emergency room after episodes of vomiting and abdominal discomfort. On imaging there are Moderate distention of the gallbladder with several gallstones in the region of the gallbladder neck and possible early acute calculus cholecystitis Other imaging findings of postoperative changes consistent with a prior partial bowel resection and possibly partial distal partial gastrectomy. Postoperative changes including scarring/deformity of the right anterior abdominal wall. On exam: General; no acute distress Heart: regular rate Lungs: clear to auscultation bilaterally, no wheezing Abdomen: soft, no acute tenderness to palpation, there are deformities of right lower abdomen from previous history of surgeries years ago, no open drainage ExtRremitiies: no extremity edema Neuro: awake, verbal, cooperative on exam treatment of this time for the CHOLELITHIASIS AND suspected CHOLECYSTITIS is medical management as patient appears to be clinically stable and preference of family and general surgery leans towards nonoperative management and so will currently treat with IV antibiotics and pain medications patient's denies that patient has history of hypertension and is not on antihypertensives reports that his blood pressure generally runs low. but blood pressure high on initial presentation and on time of exam patient is not in acute pain. it is unclear whether patient may have previously undiagnosed HYPERTENSION or whether elevated blood pressures are situational to illness. if blood pressures remain elevated then may consider trial of amlodipine follow the renal function for CHRONIC KIDNEY DISEASE STAGE III Agree with other assessment and plan of medical issues as documented by physician bilingual teacher assistant My colleague Dr. Troncoso will be following the patient starting on 08/10/19
--- NOTE | 2019-08-09 16:41 | Emergency Department Note ---
Entered by Kailey Marcelo acting as a scribe for History of Present Illness General Chief complaint: Cardiac Assessment Stated complaint: VOMITING,CHEST PAIN,BRADYCARDIA Time Seen by Provider: 08/09/19 11:13 Source: patient History of Present Illness Onset (ago): hour(s) (12) Location: chest Radiation: non-radiation Pain Consistency: + intermittent Maximum Pain Intensity: 1 Associated symptoms: + denies other symptoms (blood in stool, abdominal pain, trauma), + nausea/vomiting and + other (discomfort in legs at night, trouble walking); no shortness of breath The patient is a 89 year old male who presents to the Emergency Room with complaints of intermittent chest pain beginning about 12 hours ago last night. The patient reports vomiting beginning around the same time. The patient denies blood in stool, abdominal pain, trauma, and shortness of breath. The patient notes discomfort in his legs at night, and trouble walking normally. He reports a history of ulcers, two stomach surgeries, and abscess surgery. He states that he has a slow heart rate. Home Medications Home Medications Medication Instructions Recorded Confirmed Type cholecalciferol (vitamin D3) 400 unit PO QAM 08/09/19 08/09/19 History [Vitamin D3] docusate sodium 100 mg PO DAILY@1800 08/09/19 08/09/19 History dorzolamide-timolol 1 drp OPB BID 08/09/19 08/09/19 History magnesium oxide 250 mg PO QAM 08/09/19 08/09/19 History multivitamin 1 tab PO QAM 08/09/19 08/09/19 History omeprazole 20 mg PO QAM 08/09/19 08/09/19 History sennosides [Senna Lax] 17.2 mg PO HS 08/09/19 08/09/19 History sucralfate 1 g PO BID 08/09/19 08/09/19 History Allergies Allergy/AdvReac Type Severity Reaction Status Date / Time adhesive Allergy Unknown RASH Unverified 08/09/19 11:51 aspirin Allergy Unknown BLEEDING Unverified 08/09/19 11:51 ULCERS codeine Allergy Unknown Rash - All Unverified 08/09/19 11:51 over body redness latex Allergy Unknown LOCAL RASH Unverified 08/09/19 11:51 NSAIDS (Non-Steroidal Allergy Unknown _ Verified 08/09/19 11:51 Anti-Inflamma prednisone Allergy Unknown Verified 08/09/19 11:51 primidone Allergy Unknown SWEATING, Verified 08/09/19 11:51 DIZZINESS Past Med/Surg History Medical History Dementia (Chronic) Dyslipidemia (Chronic) Duodenal ulcer (Chronic) Abdominal pain GERD (gastroesophageal reflux disease) (Chronic) CKD (chronic kidney disease), stage III (Chronic) TIA (transient ischemic attack) (Chronic) Glaucoma (Chronic) Surgical History H/O knee surgery (Chronic) H/O colonoscopy (Chronic) History of esophagogastroduodenoscopy (EGD) (Chronic) History of cataract surgery (Chronic) History of gastric surgery (Chronic) Family History Other Cancer Coronary heart disease Diabetes Social History Feels Safe at Home: Yes Smoking Status: Former smoker Hx Alcohol Use: No Hx Substance Use: No Review of Systems See HPI for pertinent positives & negatives. and A total of 10 systems reviewed and were otherwise negative Physical Exam Vital Signs Vital Signs - 24 hr 08/09/19 11:05 08/09/19 11:23 08/09/19 12:20 Temperature 36.8 C Temperature Source Oral Sepsis Recent Fever Within 48 Hours No Sepsis New/Unexplained Change in Mental Status No Sepsis Action Taken by Nursing No Action Required Pulse Rate 69 Pulse Rate [Left Finger] 58 L Respiratory Rate 20 22 Blood Pressure 184/101 H Blood Pressure [Left Arm] 166/80 H Blood Pressure Mean 128 Blood Pressure Mean [Left Arm] 108 Pulse Oximetry 96 97 96 Oxygen Delivery Method Room Air Room Air Room Air 08/09/19 13:11 08/09/19 14:52 08/09/19 16:03 Temperature Temperature Source Sepsis Recent Fever Within 48 Hours Sepsis New/Unexplained Change in Mental Status Sepsis Action Taken by Nursing Pulse Rate Pulse Rate [Left Finger] 71 75 76 Respiratory Rate 20 24 22 Blood Pressure Blood Pressure [Left Arm] 183/101 H 197/112 H 199/97 H Blood Pressure Mean Blood Pressure Mean [Left Arm] 128 140 131 Pulse Oximetry 96 97 96 Oxygen Delivery Method Room Air Room Air Room Air 08/09/19 17:11 08/09/19 18:24 Temperature Temperature Source Sepsis Recent Fever Within 48 Hours Sepsis New/Unexplained Change in Mental Status Sepsis Action Taken by Nursing Pulse Rate 72 Pulse Rate [Left Finger] 75 Respiratory Rate 24 20 Blood Pressure 149/86 H Blood Pressure [Left Arm] 175/95 H Blood Pressure Mean Blood Pressure Mean [Left Arm] 121 Pulse Oximetry 96 96 Oxygen Delivery Method Room Air Room Air General: Non-ill appearing older male in no acute distress. HEENT: Normal cephalic atraumatic. Pupils are equal round and reactive to light. Extraocular movements are intact. Oropharynx is pink with moist mucous membranes. No swelling of the mouth lips or tongue. Neck: Supple with a midline trachea. No meningeal signs or stiffness, no JVD or bruits. No Stridor. Chest: Clear to auscultation bilaterally. No wheezes or rhonchi. No increased work of breathing. Heart: regular rate and rhythm. Abdomen: Mildly tender in upper epigastric and lower chest, large scar from previous surgery on right abdomen. Soft, nondistended without rebound guarding or rigidity. Extremities: No cyanosis clubbing or edema. No calf tenderness or asymmetry Spine/Back. Non tender to palpation. No CVA tenderness Skin: Good turgor without rashes. Neurologic exam: Cranial nerves two through 12 are intact. Motor and sensation are intact and symmetrical throughout. Course 1115: Past medical records reviewed. The patient was evaluated in room C04. A complete history and physical exam was performed. 1357: Upon reevaluation, the patient is resting more comfortably. 1500: Discussed the patient's case with Dr. Richard - Elie, [facility] who agrees the patient should be further evaluated. 1544: Discussed the patient's case with Marybeth CARTY. The patient will be evaluated for further management. Administered Medications Discontinued Medications Sodium Chloride (Nss) 500 mls @ 999 mls/hr IV .Q31M [facility] Stop: 08/09/19 12:00 Last Infusion: 08/09/19 12:11 Dose: 0 mls/hr Documented by: [id number] Admin: 08/09/19 11:39 Dose: 999 mls/hr Documented by: [id number] Piperacillin Sod/Tazobactam Sod (Zosyn) 4.5 gm in 120 mls @ 240 mls/hr IV NOW ONE Stop: 08/09/19 15:55 Last Infusion: 08/09/19 17:10 Dose: 0 mls/hr Documented by: [id number] Admin: 08/09/19 16:02 Dose: 240 mls/hr Documented by: [id number] Acetaminophen (Ofirmev) 1,000 mg in 100 mls @ 400 mls/hr IV NOW STA Stop: 08/09/19 16:46 Last Infusion: 08/09/19 18:00 Dose: 0 mls/hr Documented by: [id number] Admin: 08/09/19 17:23 Dose: 400 mls/hr Documented by: [id number] Medical Decision Making Differential Diagnosis Acute coronary syndrome, AAA, arrhythmia, peptic ulcer disease, pancreatitis, bowel obstruction Medical Records Attestation: I reviewed the patient's medical records. Home Medications Current Medication List: was personally reviewed by ut Laboratory Data Attestation: I reviewed the patient's lab results. Result diagrams: 08/09/19 11:21 08/09/19 11:21 Lab Results 08/09/19 08/09/19 08/09/19 Range/Units 11:21 11:21 11:21 WBC 12.82 H (4.8-10.8) K/uL RBC 4.46 L (4.7-6.1) M/uL Hgb 14.1 (14.0-18.0) g/dL Hct 41.1 L (42-52) % MCV 92.2 (80-100) fL MCH 31.6 (25-34) pg MCHC 34.3 (32-36) g/dL RDW Std Deviation 42.5 (36.4-46.3) fL RDW Coeff of Jani 12.6 (11.5-14.5) % Plt Count 172 (130-400) K/uL MPV 9.8 (7.4-10.4) fL Immature Gran % (Auto) 0.3 % Neut % (Auto) 78.8 % Lymph % (Auto) 11.5 % [place] % (Auto) 8.5 % Eos % (Auto) 0.8 % Baso % (Auto) 0.1 % Immature Gran # (Auto) 0.04 H (0.00-0.02) K/uL Neut # (Auto) 10.10 H (1.4-6.5) K/uL Lymph # (Auto) 1.48 (1.2-3.4) K/uL [place] # (Auto) 1.09 H (0.11-0.59) K/uL Eos # (Auto) 0.10 (0-0.5) K/uL Baso # (Auto) 0.01 (0-0.2) K/uL PT 10.3 (9.0-12.0) Seconds INR 1.0 (0.9-1.1) APTT 25.5 (21.0-31.0) Seconds PTT Ratio 0.9 Sodium 137 (136-145) mmol/L Potassium 4.1 (3.5-5.1) mmol/L Chloride 103 (98-107) mmol/L Carbon Dioxide 28 (21-32) mmol/L Anion Gap 6.0 (3-11) BUN 17 (7-18) mg/dl Creatinine 1.45 H (0.6-1.4) mg/dl Est Cr Clr Drug Dosing 34.2 ml/min Est GFR ( Amer) 49.1 Est GFR (Non-Af Amer) 42.4 BUN/Creatinine Ratio 11.8 (10-20) Glucose 108 H (70-99) mg/dl Calcium 8.9 (8.5-10.1) mg/dl Total Bilirubin 0.7 (0.2-1) mg/dl AST 20 (15-37) U/L ALT 26 (12-78) U/L Alkaline Phosphatase 71 (45-117) U/L Troponin I 0.023 (0-0.045) ng/ml Total Protein 7.8 (6.4-8.2) gm/dl Albumin 3.9 (3.4-5.0) gm/dl Globulin 3.9 (2.5-4.0) gm/dl Albumin/Globulin Ratio 1.0 (0.9-2) Lipase 133 (73-393) U/L Imaging Data Radiologist's Impression: Radiology results as stated below per my review and the radiologist's interpretation: XR chest 1V portable CLINICAL HISTORY: Atypical chest pain COMPARISON STUDY: 02/18/2017 FINDINGS: The cardiac and mediastinal contours are normal. There is no evidence of focal pulmonary consolidation. There is no evidence of failure. No pleural effusions are visualized.[There is mild basilar atelectasis/scarring. IMPRESSION: No active disease in the chest. Electronically signed by: José Manuel Arnett M.D. 08/09/2019 11:[address] abd pelvis wo con CT DOSE: 560.30 mGycm HISTORY: Pain eval for bowel obst TECHNIQUE: Multiaxial CT images of the abdomen and pelvis were performed without contrast. A dose lowering technique was utilized adhering to the principles of ALARA. COMPARISON STUDY: None. FINDINGS: Lung bases are clear. The liver spleen and pancreas appear unremarkable. Moderate fatty replacement of the pancreas. Somewhat distended gallbladder with several gallstones in the region of the gallbladder neck. Operative changes to the bowel and right anterior abdominal region suggesting a prior bowel resection. Anastomotic lines appear patent. Possible components of or prior partial distal gastrectomy. Bowel pattern overall is nonobstructive. Bladder is midline. No significant abdominal pelvic or inguinal volodymyr pathology. IMPRESSION: 1. Postoperative changes consistent with a prior partial bowel resection and possibly partial distal partial gastrectomy. 2. Postoperative changes including scarring/deformity of the right anterior abdominal wall. 3. Bowel pattern is nonobstructive. 4. Moderate distention of the gallbladder with several gallstones in the region of the gallbladder neck. 5. Right upper quadrant ultrasonography could BE of further assistance to evaluate the gallbladder and biliary tract. The above report was generated using voice recognition software. It may contain grammatical, syntax or spelling errors. Electronically signed by: Mitch Mary M.D. 08/09/2019 1:18 PM US gallbladder CLINICAL HISTORY: 89 years-old Male presenting with cholelithiasis. TECHNIQUE: Real-time grayscale and limited color Doppler ultrasound imaging of the abdomen limited to the right upper quadrant was performed. COMPARISON: CT from earlier today. FINDINGS: Pancreas: Visualized portions of the pancreatic head and body normal. Liver: Normal echogenicity and echotexture. No sonographic evidence of hepatic mass. Main portal vein patent with normal directional flow. Biliary: No intrahepatic biliary ductal dilatation. Common bile duct measures up to 6 mm in diameter. Gallbladder: Gallstones at the gallbladder neck with mild gallbladder wall thickening measuring 4 mm. There is mild gallbladder distention with the gallbladder length measuring 8.8 cm. No pericholecystic fluid or inflammatory change. Right kidney: Cortical atrophy is suggested. Ascites: None. Other: None. IMPRESSION: Cholelithiasis and gallbladder wall thickening. Findings may suggest early acute calculus cholecystitis. Consider HIDA scan for further evaluation. Electronically signed by: Oleksandr Cordova M.D. 08/09/2019 2:38 PM ECG Data Attestation: I personally reviewed and interpreted this ECG as follows: Indication: chest pain Rate (beats per minute): 67 Rhythm: sinus rhythm Findings: + other (nonspecific intraventricular conduction delay); no ST depression, no ST elevation and no acute ischemic change Comparison ECG Date: from (02/20/2017) Change: no significant change Blood Pressure Blood Pressure Findings: Elevated blood pressure Blood Pressure Disposition: further management by hospitalist MDM Narrative This patient comes in as described above. He has epigastric/lower chest pain that is been throughout the night he has had multiple episodes of vomiting. He does have a remote history of gastric ulcers during which he had a surgery to remove part of his stomach and subsequent abscess. This is been many years ago .he has had no recent problems and no blood in his vomit or stool. No shortness of breath. he says he feels okay at present. he does have some baseline dementia according to his . No fever orchills. No fall or trauma. IV access established .EKG was obtained that does not show any acute ischemic changes or ectopy. There is no acute electrolyte or metabolic abnormalities. His white count is mildly elevated however he has no fever. His troponin is not elevated. Chest x-ray does not show any findings suggesting congestive heart failure, pneumonia, or pneumothorax. I did do a CAT scan of his abdomen and he does have gallstones and possibly thickened gallbladder ultrasound was recommended. Ultrasound shows cholelithiasis with possible acute cholecystitis. He was given IV Zosyn. I discussed case with BRANDEN King from surgery. He recommends medical admit. I discussed this with the patient and the family and he will be admitted/observe to medicine. Impression & Plan Cholecystitis, Abdominal pain, Vomiting, CKD (chronic kidney disease), stage I II, Gallstones Discharge Plan Visit Data Chief Complaint: Cardiac Assessment Stated Complaint: VOMITING,CHEST PAIN,BRADYCARDIA ED Provider: Robi Ortiz Discharge Problem: Cholecystitis, Abdominal pain, Vomiting, CKD (chronic kidney disease), stage III, Gallstones Patient Disposition: Being Evaluated by Hospitalist Discharge Instructions Interventions: ED Discharge Assessment Last Done: 08/09/19 18:24 Forms Stand Alone Forms: My [facility] [employer] Prescriptions Prescriptions: No Action sucralfate 1 gram tablet 1 g PO BID RF: 0 omeprazole 20 mg capsule,delayed release(DR/EC) 20 mg PO QAM RF: 0 dorzolamide-timolol 22.3-6.8 mg/mL drops 1 drp OPB BID RF: 0 multivitamin Tablet 1 tab PO QAM RF: 0 sennosides [Senna Lax] 8.6 mg Tablet 17.2 mg PO HS RF: 0 docusate sodium 50 mg Capsule 100 mg PO DAILY@1800 RF: 0 magnesium oxide 250 mg magnesium Tablet 250 mg PO QAM RF: 0 cholecalciferol (vitamin D3) [Vitamin D3] 400 unit Capsule 400 unit PO QAM RF: 0 Referrals Referrals: Paulino Vela MD [Primary Care Provider] - The scribe's documentation has been prepared under my direction and personally reviewed by me in its entirety. I confirm that the note above accurately reflects all work, treatment, procedures, and medical decision making performed by me.
[2019-08-09] MEDS ORDERED: ACETAMINOPHEN 1,000 MG/100 ML VIAL IV PRN (19:16)
[2019-08-09] MEDS ORDERED: CONSULT PHARMACY STA (19:16)
[2019-08-09] MEDS ORDERED: ONDANSETRON INJ 2 MG/ML 2 ML VIAL IV PRN (19:16)
[2019-08-09] MEDS ORDERED: SENNA 8.6 MG TAB PO PRN (19:16)
[2019-08-09] MEDS ORDERED: D5W AND 1/2NSS 1,000 ML IV SCH (19:25)
[2019-08-09] MEDS: DOCUSATE SODIUM 100 MG CAP PO SCH (19:49)
[2019-08-09] MEDS: SUCRALFATE 1 GM TAB PO SCH (20:57)
[2019-08-09] MEDS: DORZOLAMIDE/TIMOLOL 22.3/6.8MG/ML 10 ML BTL OPB SCH (21:27)
[2019-08-09] MEDS: PIPERACILLIN/TAZOBACTAM 3.375 GM in DEXTROSE 5% 100 ML IV SCH (21:29)
[2019-08-10 01:15] LABS: Basophils # (auto) 0.01 K/uL (0-0.2); Basophils % (auto) 0.1 %; Eosinophils # (auto) 0.03 K/uL (0-0.5); Eosinophils % (auto) 0.2 %; Hematocrit (blood only) 40.4 % (42-52); Immature Granulocytes # (auto) 0.03 K/uL (0.00-0.02); Immature Granulocytes % (auto) 0.2 %; Lymphocytes # (auto) 1.76 K/uL (1.2-3.4); Lymphocytes % (auto) 11.6 %; Mean Corpuscular Hgb Conc 34.7 g/dL (32-36); Mean Corpuscular Volume 92.2 fL (80-100); Mean Platelet Volume 9.9 fL (7.4-10.4); Monocytes # (auto) 1.39 K/uL (0.11-0.59); Monocytes % (auto) 9.2 %; Neutrophils % (auto) 78.7 %; Platelet Count 168 K/uL (130-400); RDW Coefficient of Variation 12.6 % (11.5-14.5); RDW Standard Deviation 42.7 fL (36.4-46.3); Red Blood Count 4.38 M/uL (4.7-6.1); White Blood Count 15.12 K/uL (4.8-10.8)
[2019-08-10 01:37] LABS: Albumin Level 3.6 gm/dl (3.4-5.0); BUN Creatinine Ratio 10.7 (10-20); Calcium 8.3 mg/dl (8.5-10.1); Creatinine Clr Calc Pharmacy 33.1 ml/min; Est GFR (African American) 47.9; Est GFR (Non-African American) 41.4; Potassium 3.7 mmol/L (3.5-5.1)
[2019-08-10 01:59] LABS: Albumin Globulin Ratio 0.9 (0.9-2); Bilirubin,Total 1.3 mg/dl (0.2-1); Globulin 3.8 gm/dl (2.5-4.0); Total Protein 7.4 gm/dl (6.4-8.2); Troponin I 0.07 ng/ml (0-0.045)
[2019-08-10] MEDS ORDERED: ACETAMINOPHEN 325 MG TAB PO PRN (02:37)
--- NOTE | 2019-08-10 02:37 | Hospitalist Progress Note ---
Date of Service August 10, 2019 Subjective Made aware by RN of troponin elevation to 0.07 from 0.066 on admission. SBP 1 60-180s since admission . Patient asymptomatic as per RN. AP Troponin elevation secondary to hypertensive urgency, abnormal kidney function Possible chronic hypertension given LVH on 2016 TTE Initiate Norvasc. Follow troponin Continue IV fluid Will relay to AM provider. Results & Data Vital Signs (Past 12 Hours) Vital Signs Temp Pulse Pulse Resp BP BP Pulse Ox 08/10/19 01:12 36.5 C 75 20 159/72 H 96 08/10/19 00:00 78 08/09/19 23:00 36.7 C 68 20 166/78 H 96 08/09/19 18:48 36.5 C 75 16 165/90 H 95 08/09/19 18:24 72 20 149/86 H 96 08/09/19 17:11 75 24 175/95 H 96 08/09/19 16:03 76 22 199/97 H 96 08/09/19 14:52 75 24 197/112 H 97
[2019-08-10 02:54] LABS: Magnesium 1.8 mg/dl (1.8-2.4)
[2019-08-10] MEDS: LACTATED RINGER'S 1,000 ML IV SCH ×2 (02:59→21:38)
[2019-08-10] MEDS: AMLODIPINE BESYLATE 5 MG TAB PO SCH (03:46)
[2019-08-10] MEDS: PIPERACILLIN/TAZOBACTAM 3.375 GM in DEXTROSE 5% 100 ML IV SCH ×3 (06:51→21:37)
[2019-08-10 08:24] LABS: Albumin Level 3.2 gm/dl (3.4-5.0); BUN Creatinine Ratio 12.6 (10-20); Calcium 8.4 mg/dl (8.5-10.1); Creatinine Clr Calc Pharmacy 35.8 ml/min; Est GFR (African American) 52.6; Est GFR (Non-African American) 45.4; Potassium 3.8 mmol/L (3.5-5.1)
[2019-08-10 08:26] LABS: Albumin Globulin Ratio 0.9 (0.9-2); Bilirubin,Total 1.4 mg/dl (0.2-1); Globulin 3.6 gm/dl (2.5-4.0); Total Protein 6.8 gm/dl (6.4-8.2)
[2019-08-10] MEDS: DORZOLAMIDE/TIMOLOL 22.3/6.8MG/ML 10 ML BTL OPB SCH ×2 (08:53→20:38)
[2019-08-10] MEDS: PANTOprazole 40 MG TAB PO SCH (08:54)
[2019-08-10] MEDS: SUCRALFATE 1 GM TAB PO SCH ×2 (08:54→20:38)
[2019-08-10] MEDS: MAGNESIUM OXIDE 400 MG TAB PO SCH (08:54)
--- NOTE | 2019-08-10 09:28 | Hospitalist Progress Note ---
Date of Service August 10, 2019 Assessment & Plan (1) Acute cholecystitis: (2) Abdominal pain: (3) Vomiting: Per admitting notes: Pt is 89 y/o M with PMH CKD III, TIA (not on plavix or aspirin), h/o perforated duodenal ulcer requiring surgery and had postop complication in 1994, GERD, essential tremor, dyslipidemia, dementia presented to ER with complaint of several episodes of vomiting and epigastric discomfort since last evening. Denies fever/chills, hematemesis, melena, hematochezia, In ER pt afebrile, P: 69, R; 20, BP: 184/101, 96% on RA. WBC: 12, H/H: 14/41, Troponin: 0.023, Normal LFTs, normal lipase GALLBLADDER US:Cholelithiasis and gallbladder wall thickening. Findings may suggest early acute calculus cholecystitis. Consider HIDA scan for further evaluation. CT ABD/PELVIS:1. Postoperative changes consistent with a prior partial bowel resection and possibly partial distal partial gastrectomy. 2. Postoperative changes including scarring/deformity of the right anterior abdominal wall. 3. Bowel pattern is nonobstructive. 4. Moderate distention of the gallbladder w ith several gallstones in the region of the gallbladder neck. 5. Right upper quadrant ultrasonography could BE of further assistance to evaluate the gallbladder and biliary tract. CXR: No active disease in the chest. Remains afebrile Leukocytosis of 15,000 Total bilirubin 1.4, AST/ALT normal, alk phos normal Okay for clear liquids per general surgery Monitor closely If with worsening of condition, general surgery service recommend transfer to tertiary care center for possible percutaneous cholecystostomy tube placement (4) Hypertension: To be 2.5 mg p.o. started Continue to monitor (5) Troponin level elevated: Troponins 0.06, 0.07, 0.06 EKG no signs of acute ischemia or infarct Echocardiogram ordered (6) Dementia: Baseline mental status (7) Duodenal ulcer: H/O perforated duodenal ulcer after on prolonged oral steroids requiring surgery and had postop complication in 1994 No melena, hematochezia, hematemesis -Continue PPI, Carafate (8) TIA (transient ischemic attack): H/O TIA Not on Aspirin or Plavix secondary to pt and pt's wishes with pt's prior hx bleeding gastric ulcer and surgical repair (9) CKD (chronic kidney disease), stage III: Cr: 1.4. Baseline ~1.6 -Monitor renal functions -Avoid nephrotoxic agents when possible DVT Prophylaxis -SCDs for now in case of surgical procedure Full Code as per discussion with pt and pt's [phone], however report would not want on prolonged life support if poor prognosis. Follows with Dr Vela for routine care Subjective Follow-up for acute cholecystitis Seen resting in bed, comfortable, not in distress Denies abdominal pain, nausea, vomiting, fevers or chills Chest pain, shortness of breath, palpitations, dizziness Denies other symptoms Review of Systems Review of Systems: All systems reviewed & are unremarkable except as noted in HPI & below Physical Exam Physical Exam: General- oriented x 2, not in distress, speaks in sentences with no effort or accessory muscle use Head- atraumatic Eyes- PERRL, EOMI, anicteric ENT- oropharynx clear Neck- supple, no JVD, no adenopathy, no thyromegaly; carotids +2/2, no bruits appreciated Lungs- clear to auscultation bilaterally, no rales/wheezes Heart- normal rate, regular rhythm; no murmur, no gallop, no rub appreciated Abdomen- normal bowel sounds, nondistended, soft, very mild tenderness in the r ight upper quadrant, no Chopra sign,, no masses or hepatosplenomegaly Extremities- no pretibial edema, no calf tenderness; peripheral pulses intact Neuro- alert, oriented x2; CN 2-12 grossly intact; motor 5/5 bilaterally;sensation 100% on all extremities; no other gross focal neurologic deficits Skin- warm & dry Results & Data Vital Signs (Past 12 Hours) Vital Signs Temp Pulse Pulse Pulse Resp BP BP 08/10/19 07:29 36.5 C 80 18 150/76 H 08/10/19 04:31 37.0 C 76 20 147/81 H 08/10/19 01:12 36.5 C 75 20 159/72 H 08/10/19 00:00 78 08/09/19 23:00 36.7 C 68 20 166/78 H Pulse Ox 08/10/19 07:29 97 08/10/19 04:31 96 08/10/19 01:12 96 08/10/19 00:00 08/09/19 23:00 96 Laboratory Results Laboratory Results - last 24 hr 08/09/19 08/10/19 08/10/19 19:42 01:02 01:02 WBC 15.12 H RBC 4.38 L Hgb 14.0 Hct 40.4 L MCV 92.2 MCH 32.0 MCHC 34.7 RDW Std Deviation 42.7 RDW Coeff of Jani 12.6 Plt Count 168 MPV 9.9 Immature Gran % (Auto) 0.2 Neut % (Auto) 78.7 Lymph % (Auto) 11.6 [place] % (Auto) 9.2 Eos % (Auto) 0.2 Baso % (Auto) 0.1 Immature Gran # (Auto) 0.03 H Neut # (Auto) 11.90 H Lymph # (Auto) 1.76 [place] # (Auto) 1.39 H Eos # (Auto) 0.03 Baso # (Auto) 0.01 Sodium 134 L Potassium 3.7 Chloride 98 Carbon Dioxide 27 Anion Gap 9.0 BUN 16 Creatinine 1.48 H Est Cr Clr Drug Dosing 33.1 Est GFR ( Amer) 47.9 Est GFR (Non-Af Amer) 41.4 BUN/Creatinine Ratio 10.7 Glucose 117 H Calcium 8.3 L Magnesium 1.8 Total Bilirubin 1.3 H D AST 33 ALT 31 Alkaline Phosphatase 59 Troponin I 0.066 H* 0.070 H* Total Protein 7.4 Albumin 3.6 Globulin 3.8 Albumin/Globulin Ratio 0.9 08/10/19 08/10/19 07:57 07:57 WBC RBC Hgb Hct MCV MCH MCHC RDW Std Deviation RDW Coeff of Jani Plt Count MPV Immature Gran % (Auto) Neut % (Auto) Lymph % (Auto) [place] % (Auto) Eos % (Auto) Baso % (Auto) Immature Gran # (Auto) Neut # (Auto) Lymph # (Auto) [place] # (Auto) Eos # (Auto) Baso # (Auto) Sodium 134 L Potassium 3.8 Chloride 100 Carbon Dioxide 29 Anion Gap 6.0 BUN 17 Creatinine 1.37 Est Cr Clr Drug Dosing 35.8 Est GFR ( Amer) 52.6 Est GFR (Non-Af Amer) 45.4 BUN/Creatinine Ratio 12.6 Glucose 111 H Calcium 8.4 L Magnesium Total Bilirubin 1.4 H AST 37 ALT 31 Alkaline Phosphatase 59 Troponin I 0.064 H* Total Protein 6.8 Albumin 3.2 L Globulin 3.6 Albumin/Globulin Ratio 0.9
--- NOTE | 2019-08-10 15:00 | Surgery Progress Note ---
Date of Service August 10, 2019 Assessment & Plan (1) Abdominal pain: Patient admitted with abdominal pain, nausea/vomiting with findings concerning for cholecystitis. At this time patient's nausea/vomiting/pain have resolved, Tbili stable at 1.4 and AST/ALT/AlkP unremarkable Would continue IV abx for now, WBC 15 today Patient okay to start clear liquid diet from our standpoint If patient's condition deteriorates or there is clear concern for cholecystitis would recommend transfer to a tertiary center where patient can receive a percutaneous cholecystostomy tube. Due to patient's PSH he is not a candidate for a cholecystectomy here. Patient seen and examined with Dr. Meyers Subjective at bedside. patient states that he is feeling well. Pain is improving and he denies any further nausea/vomiting. Physical Exam Physical Exam: awake in bed with at side Gastrointestinal (Abdomen): Percussion/Palpation: abdomen soft; abdomen nontender Results & Data Vital Signs (Past 12 Hours) Vital Signs Temp Pulse Pulse Pulse Resp BP BP 08/10/19 12:23 37.4 C 08/10/19 12:19 36.2 C L 77 18 149/68 H 08/10/19 12:00 36.6 C 69 18 138/67 08/10/19 08:00 70 08/10/19 07:29 36.5 C 80 18 150/76 H 08/10/19 04:31 37.0 C 76 20 147/81 H Pulse Ox 08/10/19 12:23 08/10/19 12:19 96 08/10/19 12:00 94 08/10/19 08:00 08/10/19 07:29 97 08/10/19 04:31 96 PG Care Time/CCT Total # of Minutes Spent Total Time Spent with Patient: Total time spent is greater than 50% in coordination of care (as documented) at patient's floor/unit and/or counseling patient:
[2019-08-10] MEDS: DOCUSATE SODIUM 100 MG CAP PO SCH (18:15)
[2019-08-11] MEDS ORDERED: LORATADINE 10 MG TAB PO ONE (05:20)
--- NOTE | 2019-08-11 05:23 | Hospitalist Progress Note ---
Date of Service August 11, 2019 Subjective Made aware by RN of a rash over trunk and upper extremity, site of Zosyn administration. Patient denies pruritus, chest pain, S OB as per RN. AP Zosyn hypersensitivity Loratadine 1 dose now Add Zosyn to allergy/ADR list Ertapenem for biliary infection for now. Will relay to AM provider. Results & Data Vital Signs (Past 12 Hours) Vital Signs Temp Pulse Pulse Pulse Resp BP BP 08/11/19 03:42 36.5 C 70 18 144/72 H 08/11/19 00:00 75 08/10/19 23:04 36.6 C 93 H 20 162/85 H 08/10/19 19:52 36.9 C 89 20 131/71 Pulse Ox 08/11/19 03:42 97 08/11/19 00:00 08/10/19 23:04 97 08/10/19 19:52 96
[2019-08-11] MEDS ORDERED: ERTAPENEM CONSULT ACTIVE PRN (06:32)
[2019-08-11 07:06] LABS: Creatinine Clr Calc Pharmacy 37.8 ml/min; Est GFR (African American) 56.1; Est GFR (Non-African American) 48.4
[2019-08-11] MEDS ORDERED: ERTAPENEM SODIUM 1,000 MG in SODIUM CHLORIDE 0.9% 50 ML IV SCH (08:00)
[2019-08-11] MEDS: AMLODIPINE BESYLATE 5 MG TAB PO SCH (09:13)
[2019-08-11] MEDS: MAGNESIUM OXIDE 400 MG TAB PO SCH (09:13)
[2019-08-11] MEDS: SUCRALFATE 1 GM TAB PO SCH (09:13)
[2019-08-11] MEDS: DORZOLAMIDE/TIMOLOL 22.3/6.8MG/ML 10 ML BTL OPB SCH (09:13)
[2019-08-11] MEDS: PANTOprazole 40 MG TAB PO SCH (09:13)
[2019-08-11] MEDS: LACTATED RINGER'S 1,000 ML IV SCH (09:14)
--- NOTE | 2019-08-11 09:15 | Hospitalist Progress Note ---
Date of Service August 11, 2019 Assessment & Plan (1) Acute cholecystitis: (2) Abdominal pain: (3) Vomiting: Per admitting notes: Pt is 89 y/o M with PMH CKD III, TIA (not on plavix or aspirin), h/o perforated duodenal ulcer requiring surgery and had postop complication in 1994, GERD, essential tremor, dyslipidemia, dementia presented to ER with complaint of several episodes of vomiting and epigastric discomfort since last evening. Denies fever/chills, hematemesis, melena, hematochezia, In ER pt afebrile, P: 69, R; 20, BP: 184/101, 96% on RA. WBC: 12, H/H: 14/41, Troponin: 0.023, Normal LFTs, normal lipase GALLBLADDER US:Cholelithiasis and gallbladder wall thickening. Findings may suggest early acute calculus cholecystitis. Consider HIDA scan for further evaluation. CT ABD/PELVIS:1. Postoperative changes consistent with a prior partial bowel resection and possibly partial distal partial gastrectomy. 2. Postoperative changes including scarring/deformity of the right anterior abdominal wall. 3. Bowel pattern is nonobstructive. 4. Moderate distention of the gallbladder w ith several gallstones in the region of the gallbladder neck. 5. Right upper quadrant ultrasonography could BE of further assistance to evaluate the gallbladder and biliary tract. CXR: No active disease in the chest. Remains afebrile Leukocytosis of 15,000 Total bilirubin 1.4, AST/ALT normal, alk phos normal Was given IV Zosyn then transition to ertapenem secondary to development of rash Clinically improved Reevaluated by general surgery Dr. Meyers, cleared for discharge Recommending 5 more days of antibiotics: Ciprofloxacin plus Flagyl Will need to follow-up with general surgeon clinic in 1 week (4) Hypertension: Elevated Amlodipine 2.5 mg p.o. started Blood pressure improved Monitor closely as an outpatient (5) Troponin level elevated: Likely demand ischemia from hypertensive urgency Troponins 0.06, 0.07, 0.06 EKG no signs of acute ischemia or infarct Echocardiogram : Left ventricular wall motion is normal, ejection fraction is 65%, aortic valve sclerosis mild, mild concentric LVH, ventricular systolic function is normal Grossly normal valvular structure and function (6) Dementia: Baseline mental status per family (7) Duodenal ulcer: H/O perforated duodenal ulcer after on prolonged oral steroids requiring surgery and had postop complication in 1994 No melena, hematochezia, hematemesis -Continue PPI, Carafate (8) TIA (transient ischemic attack): H/O TIA Not on Aspirin or Plavix secondary to pt and pt's wishes with pt's prior hx bleeding gastric ulcer and surgical repair (9) CKD (chronic kidney disease), stage III: Cr: 1.4. Baseline ~1.6 Stable Discharge to home Follow-up with primary care physician next week Follow-up with general surgeon Dr. Meyers in 1 week Case discussed with patient and his at the bedside in detail and at length All questions answered They are understanding, comfortable, agreeable with plan of care Subjective ff up for abdominal pain possible acute cholecystitis Seen resting in bed, comfortable, not in distress, in good spirits and son at the bedside States he feels fine overall, no abdominal pain, no nausea, tolerating diet well Denies chest pain, shortness of breath, palpitations, dizziness No other symptoms Family reports patient is much better, requesting for discharge today Patient states he is ready for discharge Review of Systems Review of Systems: All systems reviewed & are unremarkable except as noted in HPI & below Physical Exam Physical Exam: General- oriented x 2, not in distress, speaks in sentences with no effort or accessory muscle use Eyes- anicteric Neck- no JVD Lungs- clear breath sounds, no crackles, no wheezing bilaterally Heart- normal rate, regular rhythm; no murmurs Abdomen- normal bowel sounds, nondistended, soft, nontender, no Chopra's sign Extremities- no pretibial edema, no calf tenderness Neuro- alert, oriented x 3; no gross focal neurologic deficits Skin- warm & dry Results & Data Vital Signs (Past 12 Hours) Vital Signs Temp Pulse Pulse Pulse Resp BP BP 08/11/19 07:09 36.5 C 76 18 153/83 H 08/11/19 03:42 36.5 C 70 18 144/72 H 08/11/19 00:00 75 08/10/19 23:04 36.6 C 93 H 20 162/85 H Pulse Ox 08/11/19 07:09 96 08/11/19 03:42 97 08/11/19 00:00 08/10/19 23:04 97 Laboratory Results Laboratory Results - last 24 hr 08/11/19 05:59 Creatinine 1.30 Est Cr Clr Drug Dosing 37.8 Est GFR ( Amer) 56.1 Est GFR (Non-Af Amer) 48.4
--- NOTE | 2019-08-11 09:35 | Surgery Progress Note ---
Date of Service August 11, 2019 Assessment & Plan (1) Vomiting: seen with Dr. Meyers advance diet, stay on low fat diet at home, discussed with his family ok for d/c, probably keep on Cipro for a few days Subjective tolerating liquids, no pain or nausea, wants to go home Physical Exam Gastrointestinal (Abdomen): Percussion/Palpation: abdomen soft; abdomen nontender Results & Data Vital Signs (Past 12 Hours) Vital Signs Temp Pulse Pulse Pulse Resp BP BP 08/11/19 09:20 36.5 C 70 76 18 144/72 H 153/83 H 08/11/19 07:09 36.5 C 76 18 153/83 H 08/11/19 03:42 36.5 C 70 18 144/72 H 08/11/19 00:00 75 08/10/19 23:04 36.6 C 93 H 20 162/85 H Pulse Ox 08/11/19 09:20 96 08/11/19 07:09 96 08/11/19 03:42 97 08/11/19 00:00 08/10/19 23:04 97 PG Care Time/CCT Total # of Minutes Spent Total Time Spent with Patient: Total time spent is greater than 50% in coordi nation of care (as documented) at patient's floor/unit and/or counseling patient:
--- NOTE | 2019-08-11 14:39 | Discharge Summary ---
Date of Service August 11, 2019 Admission HPI Per Admitting Provider Pt is 89 y/o M with PMH CKD III, TIA (not on plavix or aspirin), h/o perforated duodenal ulcer requiring surgery and had postop complication in 1994, GERD, essential tremor, dyslipidemia, dementia presented to ER with complaint of vomiting and epigastric discomfort. it is reported last night patient with numerous episodes of vomiting which started after eating spaghetti. Reports ate [place] muffin, cereal and half a banana this morning approximately 45 minutes later had 2 episodes of vomiting. Patient points to epigastric and right upper quadrant as area of discomfort reports " area smarts". Patient does not feel pain radiates, is unable to describe or rate his pain. reports patient's current mental status is at his baseline. Denies any known fever or chills. Patient denies any shortness of breath or chest pain. Reports last BM yesterday which was formed stool. Denies hematemesis, hematochezia, melena, DAVALOS, dizziness, syncope, vision changes, neck pain, CP, SOB, orthopnea, palpitations, cough, sore throat, choking, otalgia, rhinorrhea, paresthesias, weakness, extremity weakness, extremity edema, rashes, urinary symptoms. Admission Exam Per Admitting Provider General: no acute distress, WDWN Head: normocephalic, atraumatic Eyes: PERRL, EOM's intact, conjunctiva non-injected, anicteric ENT: normal inspection external ears, nose, mucous membranes moist Neck: supple, trachea midline Lungs: clear, no respiratory distress, no wheezing/rhonchi/rales CV: RRR, no murmur, no pretibial edema Abd: normal BS, soft, +mild tenderness to palpation epigastric and RUQ without rebound or guarding Ext: no cyanosis, no calf tenderness Neuro: Alert, oriented to person, knows in hospital unsure which hospital or location, not oriented to time, no focal deficits noted, normal affect Skin: warm, dry Principal Diagnosis Abdominal pain, possible acute cholecystitis Discharge Exam General- oriented x 2, not in distress, speaks in sentences with no effort or accessory muscle use Eyes- anicteric Neck- no JVD Lungs- clear breath sounds, no crackles, no wheezing bilaterally Heart- normal rate, regular rhythm; no murmurs Abdomen- normal bowel sounds, nondistended, soft, nontender, no Chopra's sign Extremities- no pretibial edema, no calf tenderness Neuro- alert, oriented x 3; no gross focal neurologic deficits Skin- warm & dry Discharge Data Allergies Allergy/AdvReac Type Severity Reaction Status Date / Time piperacillin [From Zosyn] Allergy Mild Rash Verified 08/11/19 05:22 tazobactam [From Zosyn] Allergy Mild Rash Verified 08/11/19 05:22 adhesive Allergy Unknown RASH Unverified 08/09/19 11:51 aspirin Allergy Unknown BLEEDING Unverified 08/09/19 11:51 ULCERS codeine Allergy Unknown Rash - All Unverified 08/09/19 11:51 over body redness latex Allergy Unknown LOCAL RASH Unverified 08/09/19 11:51 NSAIDS (Non-Steroidal Allergy Unknown _ Verified 08/09/19 11:51 Anti-Inflamma prednisone Allergy Unknown Verified 08/09/19 11:51 primidone Allergy Unknown SWEATING, Verified 08/09/19 11:51 DIZZINESS Consultations 08/09/19 16:05 ED Decision to Admit Stat 08/09/19 19:16 Consult Case Management - Discharge Planning Routine Consult General Surgery Routine Ordered Studies 08/09/19 12:25 CT abd pelvis wo con Stat CT abd pelvis wo con CT DOSE: 560.30 mGycm HISTORY: Pain eval for bowel obst TECHNIQUE: Multiaxial CT images of the abdomen and pelvis were performed without contrast. A dose lowering technique was utilized adhering to the principles of ALARA. COMPARISON STUDY: None. FINDINGS: Lung bases are clear. The liver spleen and pancreas appear unremarkable. Moderate fatty replacement of the pancreas. Somewhat distended gallbladder with several gallstones in the region of the gallbladder neck. Operative changes to the bowel and right anterior abdominal region suggesting a prior bowel resection. Anastomotic lines appear patent. Possible components of or prior partial distal gastrectomy. Bowel pattern overall is nonobstructive. Bladder is midline. No significant abdominal pelvic or inguinal volodymyr pathology. IMPRESSION: 1. Postoperative changes consistent with a prior partial bowel resection and possibly partial distal partial gastrectomy. 2. Postoperative changes including scarring/deformity of the right anterior abdominal wall. 3. Bowel pattern is nonobstructive. 4. Moderate distention of the gallbladder with several gallstones in the region of the gallbladder neck. 5. Right upper quadrant ultrasonography could BE of further assistance to evaluate the gallbladder and biliary tract. 08/09/19 13:47 US gallbladder Stat IMPRESSION: Cholelithiasis and gallbladder wall thickening. Findings may suggest early acute calculus cholecystitis. Consider HIDA scan for further evaluation. Hospital Course (1) Acute cholecystitis: (2) Abdominal pain: (3) Vomiting: Per admitting notes: Pt is 89 y/o M with PMH CKD III, TIA (not on plavix or aspirin), h/o perforated duodenal ulcer requiring surgery and had postop complication in 1994, GERD, essential tremor, dyslipidemia, dementia presented to ER with complaint of several episodes of vomiting and epigastric discomfort since last evening. Denies fever/chills, hematemesis, melena, hematochezia, In ER pt afebrile, P: 69, R; 20, BP: 184/101, 96% on RA. WBC: 12, H/H: 14/41, Troponin: 0.023, Normal LFTs, normal lipase GALLBLADDER US: Cholelithiasis and gallbladder wall thickening. Findings may suggest early acute calculus cholecystitis. Consider HIDA scan for further evaluation. CT ABD/PELVIS: 1. Postoperative changes consistent with a prior partial bowel resection and possibly partial distal partial gastrectomy. 2. Postoperative changes including scarring/deformity of the right anterior a bdominal wall. 3. Bowel pattern is nonobstructive. 4. Moderate distention of the gallbladder with several gallstones in the region of the gallbladder neck. 5. Right upper quadrant ultrasonography could BE of further assistance to evaluate the gallbladder and biliary tract. CXR: No active disease in the chest. General surgery consulted, recommend conservative management in light of complex intra-abdominal surgical history Was given IV Zosyn then transition to ertapenem secondary to development of rash Remains afebrile Leukocytosis of 15,000 Total bilirubin 1.4, AST/ALT normal, alk phos normal Clinically improved, abdominal pain resolved, tolerating diet well Reevaluated by general surgery Dr. Meyers, cleared for discharge Recommending 5 more days of antibiotics: Ciprofloxacin plus Flagyl Will need to follow-up with general surgeon clinic in 1 week (4) Hypertension: Elevated Amlodipine 2.5 mg p.o. started Blood pressure improved Monitor closely as an outpatient (5) Troponin level elevated: Likely demand ischemia from hypertensive urgency Troponins 0.06, 0.07, 0.06 EKG no signs of acute ischemia or infarct Echocardiogram : Left ventricular wall motion is normal, ejection fraction is 65%, aortic valve sclerosis mild, mild concentric LVH, ventricular systolic function is normal Grossly normal valvular structure and function (6) Dementia: Baseline mental status per family (7) Duodenal ulcer: H/O perforated duodenal ulcer after on prolonged oral steroids requiring surgery and had postop complication in 1994 No melena, hematochezia, hematemesis -Continue PPI, Carafate (8) TIA (transient ischemic attack): H/O TIA Not on Aspirin or Plavix secondary to pt and pt's wishes with pt's prior hx bleeding gastric ulcer and surgical repair (9) CKD (chronic kidney disease), stage III: Cr: 1.4. Baseline ~1.6 Stable Discharge to home Follow-up with primary care physician next week Follow-up with general surgeon Dr. Meyers in 1 week Case discussed with patient and his at the bedside in detail and at length All questions answered They are understanding, comfortable, agreeable with plan of care Total Time Total Time Spent Total Time Spent (In Minutes): 45 minutes Discharge Plan Discharge Items Patient Disposition: Home - Home Health Services Reason For Visit: ABDOMINAL PAIN Discharge Diagnosis: ABDOMINAL PAIN, POSSIBLE Gallbladder attack Activity: As commented below Activity Comment: Resume activity gradually as tolerated Lifting: Wait until after follow-up appointment Exercise/Sports: Wait until after follow-up appointment Driving/Machine Use: No driving Non-emergency contact: Primary Care Provider Call non-emergency contact if: you have any medication questions Follow-up/Referrals: Paulino Vela MD [Primary Care Provider] - Diet: Heart Healthy and Low Fiber Diet Comment: Avoid greasy/oily food Addtl Attending Provider Instructions: Follow-up with primary care physician in 3 to 5 days. The clinic will be calling you for the appointment schedule. Return to the ER immediately if with worsening of symptoms, including increasing abdominal pain, fever/chills, nausea/vomiting, weakness, Diarrhea. Your new medications are: Antibiotics--ciprofloxacin 500 mg twice a day and Flagyl 500 mg 3 times a day for total of 5 days Blood pressure medication--Amlodipine 2.5 mg daily Zyrtec 10 mg daily as needed for itching or rashes Always stay well-hydrated. Include yogurt in a daily diet, probiotic daily. Pending Studies at Discharge: No Stand-Alone Forms: My [facility] Medications and DC Order Prescriptions: New amlodipine [Norvasc] 5 mg Tablet 2.5 mg PO QAM 30 Days Qty: 15 RF: 2 ciprofloxacin HCl 500 mg tablet 500 mg PO BID 5 Days Qty: 10 RF: 0 metronidazole [Flagyl] 500 mg tablet 500 mg PO TID 5 Days Qty: 15 RF: 0 cetirizine [Zyrtec] 10 mg tablet 10 mg PO DAILY PRN (Reason: allergy symptoms) Qty: 10 RF: 0 Continued sucralfate 1 gram tablet 1 g PO BID RF: 0 omeprazole 20 mg capsule,delayed release(DR/EC) 20 mg PO QAM RF: 0 dorzolamide-timolol 22.3-6.8 mg/mL drops 1 drp OPB BID RF: 0 multivitamin Tablet 1 tab PO QAM RF: 0 sennosides [Senna Lax] 8.6 mg Tablet 17.2 mg PO HS RF: 0 docusate sodium 50 mg Capsule 100 mg PO DAILY@1800 RF: 0 magnesium oxide 250 mg magnesium Tablet 250 mg PO QAM RF: 0 cholecalciferol (vitamin D3) [Vitamin D3] 400 unit Capsule 400 unit PO QAM RF: 0 Discharge Orders: Discharge Order (Routine); Ordered 08/11/19 Ordered By: Nickolas Troncoso Admission Data Admit Date/Time: 08/10/19 19:02 Attending Provider: Nickolas Troncoso Admit Provider: Avelino Frank Primary Care Provider: Paulino Vela Other Providers: David Meyers ; Avelino Frank Other Interventions: Discharge Summary Assessment (RN) Last Done: 08/11/19 09:20 DC Date/Time DO NOT enter until pt leaves facility: 08/11/19 10:39
== END 2019-08-11 10:39 | disposition home health service (06) | DRG 446 ==
LOC: ED 10:56 → 2N 10:56 → SUATTDRO 16:52 → 2N 18:24
DX: F03.90 Unspecified dementia, unspecified severity, without behavioral disturbance, psychotic disturbance, mood disturbance, and anxiety; E78.5 Hyperlipidemia, unspecified; K81.9 Cholecystitis, unspecified; Z88.5 Allergy status to narcotic agent; Z88.8 Allergy status to other drugs, medicaments and biological substances; I12.9 Hypertensive chronic kidney disease with stage 1 through stage 4 chronic kidney disease, or unspecified chronic kidney disease; K21.9 Gastro-esophageal reflux disease without esophagitis; G25.0 Essential tremor; Z88.6 Allergy status to analgesic agent; N18.3 Chronic kidney disease, stage 3 (moderate); Z86.73 Personal history of transient ischemic attack (TIA), and cerebral infarction without residual deficits